=== PATIENT | female | born 1975 | race Two or more races ===

== ENCOUNTER 2016-11-19 17:10 | Observation (INO) | payer SELFPAY ==
[~2016-11-19] VITALS: Ht 175.3 cm; Wt 95.3 kg
[2016-11-19] VITALS (8 sets, daily range): BP systolic 105–122; BP diastolic 61–75
[2016-11-19] MEDS ORDERED: ONDANSETRON PF 4 MG/2 ML VIAL. IV PRN ×3 (18:30→19:45)
[2016-11-19] MEDS ORDERED: HYDROMORPHONE 2 MG/ML VIAL. IV ONE (18:30)
[2016-11-19] MEDS ORDERED: PROPOFOL 20 ML IV ONE (18:42)
[2016-11-19] MEDS ORDERED: FENTANYL PF 100 MCG/2 ML VIAL. ONE (18:42)
[2016-11-19] MEDS ORDERED: ROCURONIUM 50 MG/5 ML VIAL. ONE (18:42)
[2016-11-19] MEDS ORDERED: LIDOCAINE 2% 100 MG/5 ML DISP.SYRIN. ONE (18:42)
[2016-11-19] MEDS ORDERED: SUCCINYLCHOLINE 200 MG/10 ML VIAL. ONE (18:43)
[2016-11-19] MEDS: IV NORMAL SALINE 1000ML BAG 1,000 ML IV SCH ×2 (18:52→21:32)
[2016-11-19] MEDS ORDERED: BUPIVAC MPF-EPI 0.5%-1:200000 30 ML VIAL. ONE (19:26)
[2016-11-19] MEDS ORDERED: SURGICEL HEMOSTAT 4X8 EACH. ONE (19:26)
[2016-11-19] MEDS ORDERED: IV RINGERS,LACTATED 1000ML 1,000 ML IV SCH (19:27)
[2016-11-19] MEDS ORDERED: FENTANYL PF 100 MCG/2 ML VIAL. IV PRN (19:30)
[2016-11-19] MEDS ORDERED: LIDOCAINE 1% 1 ML SYRINGE. ID PRN (19:30)
[2016-11-19] MEDS ORDERED: MORPHINE SULFATE 2 MG/ML DISP.SYRIN. IV PRN (19:30)
[2016-11-19] MEDS ORDERED: HYDROMORPHONE 2 MG/ML VIAL. IV PRN ×2 (19:30→19:45)
[2016-11-19] MEDS ORDERED: PROCHLORPERAZINE 10 MG/2 ML VIAL. IV PRN (19:30)
[2016-11-19] MEDS ORDERED: CEFOXITIN 2GM IVPB FOR OMNI 100 ML IV STA (19:35)
--- NOTE | 2016-11-19 19:42 | PDOC ---
Provider Note Provider Note #[id number]--z and p dictated acute appendicitis sepsis, POA. sec to appendicitis HUMA MEDINA MD Nov 19, 2016 19:42
[2016-11-19] MEDS ORDERED: 0.9 % SODIUM CHLORIDE 10 ML DISP.SYRIN. IV PRN (19:45)
[2016-11-19] MEDS ORDERED: OXYC-323 PO (19:45)
[2016-11-19] MEDS ORDERED: METOCLOPRAMIDE HCL 10 MG/2 ML VIAL. IV PRN (19:45)
[2016-11-19] MEDS ORDERED: DEXAMETHASONE SOD PHOS 20 MG/5 ML VIAL. ONE (19:51)
[2016-11-19] MEDS ORDERED: DESFLURANE 31 TO 60 MINUTES IH ONE (19:51)
[2016-11-19] MEDS ORDERED: ONDANSETRON PF 4 MG/2 ML VIAL. ONE (20:03)
[2016-11-19] MEDS ORDERED: GLYCOPYRROLATE 1 MG/5 ML VIAL. ONE (20:03)
[2016-11-19] MEDS ORDERED: NEOSTIGMINE METHYLSULFATE 5 MG/5 ML SYRINGE. ONE (20:04)
[2016-11-19] MEDS ORDERED: KETOROLAC 30 MG/ML SYRINGE FOR OR. INJ ONE (20:28)
--- NOTE | 2016-11-19 20:40 | PDOC ---
BRIEF OPERATIVE NOTE Pre-Op Diagnosis appendicitis lap appy geta ebl 20 ivf 1000 karla well to rr stable. #[id number] HUMA MEDINA MD Nov 19, 2016 20:40
[2016-11-19] MEDS: SENNOSIDES/DOCUSATE 8.6/50MG TABLET. PO SCH (21:00)
[2016-11-19] MEDS: FENTANYL PF 100 MCG/2 ML VIAL. IV PRN ×2 (21:03→21:15)
[2016-11-19] MEDS: OXYCODONE/APAP 5/325 TABLET. PO PRN (21:53)
--- NOTE | 2016-11-20 00:25 | HP ---
ADMIT DATE: 11/19/2016 CHIEF COMPLAINT: Abdominal pain. HISTORY OF PRESENT ILLNESS: The patient is a 41-year-old male who began having abdominal pain on . Originally, it was crampy and located periumbilically and then it localized on Sunday to his right lower quadrant and became sharp and constant in nature. The pain is increasingly severe. It is constant and it is sharp. It is exacerbated by movement. It is associated with nausea and vomiting on Sunday. PAST MEDICAL HISTORY: Athlete's foot. PAST SURGICAL HISTORY: Pins in his right wrist/hand. MEDICATIONS AT HOME: None. ALLERGIES: None. SOCIAL HISTORY: He smokes about a half pack to 1 pack a day. He is employed. He used to drink heavily, now he does not. He is , with children. FAMILY HISTORY: Noncontributory to this illness. REVIEW OF SYSTEMS: CONSTITUTIONAL: No fevers or chills. EYES: No abrupt loss of vision or double vision. EARS, NOSE, MOUTH AND THROAT: No loss of hearing or ringing in his ears. CARDIOVASCULAR: No chest pain or heart palpitations. RESPIRATORY: No cough, shortness of breath. GASTROINTESTINAL: See HPI. GENITOURINARY: No dysuria or hematuria. HEMATOLOGIC: No easy bleeding or bruising. MUSCULOSKELETAL: No new myalgias or arthralgias. DERMATOLOGIC: No new rashes or lesions. He has had chronic problems with bilateral athlete's foot. PSYCHIATRIC: No depression or anxiety. NEUROLOGIC: No headaches or seizures. PHYSICAL EXAMINATION: GENERAL: He is a well-developed, well-nourished male in no acute distress. EYES: Pupils are round and reactive. Sclerae are nonicteric. HENT: Head is atraumatic. Mucous membranes are moist. Face is symmetric. NECK: Supple without cervical lymphadenopathy. No supraclavicular lymphadenopathy. Neck is nontender. CARDIOVASCULAR: Palpation of the left radial pulse reveals regular rate, no pedal edema. He has 2+ left radial pulse. RESPIRATORY: His respirations are nonlabored. His chest wall is nontender to palpation. He is on room air. ABDOMEN: Soft, nondistended. He is focally tender in the right lower quadrant with no rebound or guarding. He may have a small umbilical hernia, but he is tender enough that I am unable to palpate his umbilicus deep enough to confirm this. VITAL SIGNS: His temperature is 98.3 with a pulse of 100, respiratory rate 18. EXTREMITIES: No clubbing, cyanosis or edema. NEUROLOGIC: No resting tremor. He can move all 4 extremities without difficulty. PSYCHIATRIC: He is cooperative with appropriate mood and affect. LABORATORY DATA: Reviewed. White count is 19.9. Chemistry is unremarkable. UA is unremarkable. Toxicology is positive for cannabinoids. Imaging is consistent with acute appendicitis noted on CT scan. ASSESSMENT: 1. Acute appendicitis. 2. Sepsis secondary to acute appendicitis with a heart rate of 100 and a white count of 19.9 thousand. 3. Tobacco use. PLAN: The patient is being taken to the operating room for laparoscopic appendectomy, possible open. Risk of surgery including bleeding, ongoing infection or postoperative abscess, injury to intra-abdominal structures, need to convert to open and remote risk of heart attack, stroke, DVT, PE, pneumonia and were all discussed with the patient. Questions were answered. He desires to proceed with the procedure. The OR crew has been notified and they are here. HUMA MEDINA MD DR: JAZMINE/lorene JOB#: [id number] / [id number] ZIGGY
[2016-11-20] MEDS: OXYCODONE/APAP 5/325 TABLET. PO PRN (01:21)
[2016-11-20 03:00] VITALS: BP 109/61
[2016-11-20] MEDS: KETOROLAC TROMETHAMINE 30 MG/ML SYRINGE. IV PRN ×2 (03:17→09:35)
[2016-11-20] MEDS: IV NORMAL SALINE 1000ML BAG 1,000 ML IV SCH ×2 (05:45→07:24)
[2016-11-20 07:20] VITALS: BP 130/74
[2016-11-20] MEDS: SENNOSIDES/DOCUSATE 8.6/50MG TABLET. PO SCH (07:47)
[2016-11-20] MEDS ORDERED: INFLUENZA VAX SCREEN BY RX. MC PRN (09:15)
[2016-11-20 11:00] VITALS: BP 132/76
[2016-11-20] MEDS ORDERED: FLU VACC QUAD 2016-17 (36MOS+)/PF 0.5 ML SYRINGE. VAX IM ONE (11:00)
--- NOTE | 2016-11-20 12:27 | OP ---
DATE OF SURGERY: 11/19/2016 PREOPERATIVE DIAGNOSIS: Acute appendicitis. POSTOPERATIVE DIAGNOSIS: Acute appendicitis. PROCEDURE: Laparoscopic appendectomy. SURGEON: Huma Medina M.D. ANESTHESIA: General. ESTIMATED BLOOD LOSS: 20 mL. IV FLUIDS: 1000 mL. INDICATIONS: The patient is a 41-year-old male who presents with acute appendicitis. FINDINGS: The patient had nonperforated nongangrenous appendicitis. DESCRIPTION OF PROCEDURE: After informed consent was obtained, the patient was taken to the operating room and placed in supine position. After adequate induction of general anesthesia, he was prepped and draped in usual sterile fashion. An infraumbilical skin incision was made with a scalpel, subcutaneous tissues with a hemostat. [facility] was used to grab the fascia and lift it anteriorly. Veress used to gain access to the peritoneal cavity. Low opening pressures confirmed intraperitoneal placement of Veress. Pneumoperitoneum to 15 mmHg was established followed by placement of 5 mm port. A 5 mm 30 degree lens was inserted, which revealed good port placement. No evidence of entry trauma. He was placed head down and rotated towards his left. Two additional ports were placed under direct vision and sites were injected with local anesthetic. Skin incisions were made and then under direct vision a 5 mm suprapubic port and a 12 mm left lower quadrant port were placed. The appendix was visible in the right lower quadrant, it was mobilized bluntly. The AIDAN blue load stapler was used to divide the base of the appendix after a window had been made with a [place] dissector at the base of the appendix. A AIDAN white load was then used to divide the mesoappendix. The appendix was placed in laparoscopic bag and brought out through the left lower quadrant incision. The right lower quadrant was irrigated. Irrigant returned clear. There was no bleeding from the staple lines. The staple lines appeared hemostatic and healthy. Pelvis was irrigated. There was no fluid in the pelvis. At this point, the fascial closure device was used to close the fascia at the left lower quadrant incision with 0 Vicryl suture x 2. Ports removed under direct vision. They were hemostatic. Pneumoperitoneum was desufflated. Prior to doing so one final look at the right lower quadrant revealed it to be hemostatic. Ports were removed under direct vision. They were hemostatic. Pneumoperitoneum was desufflated. Skin incisions were then closed with 4-0 Monocryl in subcuticular fashion. Additional local was injected. Sterile dressings were placed. He tolerated the procedure well. There were no apparent complications. He was then transferred in stable condition to the recovery room. HUMA MEDINA MD DR: JAZMINE/lorene JOB#: [id number] / [id number] ZIGGY
--- NOTE | 2016-11-20 13:20 | PDOC ---
Provider Note Provider Note feels well wants to go home afeb vss abd soft nd approp tender bandages dry a/p dc home HUMA MEDINA MD Nov 20, 2016 13:20
--- NOTE | 2016-11-21 16:31 | PATHOLOGY ---
PATHOLOGY REPORT * * * * * * * * FINAL DIAGNOSIS: Appendix, laparoscopic appendectomy: - Acute necrotizing and hemorrhagic appendicitis. COMMENT: There is no evidence of rupture. (JPM:all; d/t: 11/21/2016) REPORT ELECTRONICALLY SIGNED BY: Armando Stuart M.D. DATE/TIME: 11/21/2016 16:30 * * * * * * * * GROSS PATHOLOGY: Received in formalin labeled "Ntaasha Lamas, appendix," is an appendix measuring 7.8 cm in length and up to 1.5 cm in diameter with a moderate amount of attached mesoappendix. The serosal surface is dusky patrick-lechuag brown in appearance with a slight amount of overlying exudate near the proximal margin. Sectioning reveals a patent to dilated lumen filled with fibrinopurulent exudate admixed with blood coagulum. The specimen is submitted representatively as follows: A1 proximal margin and bisected tip A2 additional cross sections of appendix. (CAA; 11/20/2016) INITIAL CPT CODE(S): A; 93372 Professional services performed [place] [address] Technical services performed by [facility] at [address] [place] [address] [address], [place] [address]. SPECIMEN(S) RECEIVED: A.Appendix CLINICAL HISTORY: Acute appendicitis PATIENT: NATASHA LAMAS /AGE: 5 1975 (Age: 41) PATIENT #: [id number] ALT CASE #: SPECIMEN COLLECTION DATE: 11/19/2016 SPECIMEN RECEIVED DATE: 11/20/2016 [facility] [place] [address] - PHONE: [phone] * * * END OF REPORT * * *
== END 2016-11-20 14:00 | disposition home or self-care (01) ==
LOC: INTOOBSV 18:09 → 5 SOUTH 18:09
PROVIDERS: ADMIT Surgery; ATTEND Surgery
DX: K35.80 Unspecified acute appendicitis (principal); F17.210 Nicotine dependence, cigarettes, uncomplicated; A41.9 Sepsis, unspecified organism
CPT/HCPCS: 44970; 88304; 96374; 96375; 96376; 99406; C1782; G0378; G0379; J0330; J0694; J1100; J1170; J1885; J2405; J2704; J2710; J3010; J3490; J7030

== ENCOUNTER 2016-11-27 17:19 | Inpatient (IN) | payer SELFPAY ==
[~2016-11-27] VITALS: Ht 175.3 cm; Wt 92.8 kg
[~2016-11-27 17:19] MED LIST: OXYC-323 PO
[2016-11-27] MEDS ORDERED: IV NORMAL SALINE 1000ML BAG 1,000 ML IV SCH (18:23)
[2016-11-27 18:39] LABS: BASO # 0.1 x10^3/uL (0.0-0.2); BASO % 0 % (0-3); EOS % 0 % (0-3); HEMATOCRIT 42.9 % (39.0-53.0); HEMOGLOBIN 14.1 g/dL (13.0-17.5); LYMPH # 1.3 x10^3/uL (1.0-4.8); LYMPH % 4 % (24-48); MEAN CORPUSCULAR HEMOGLOBIN 30 pg (25-35); MEAN CORPUSCULAR HGB CONC 33 g/dL (31-37); MEAN CORPUSCULAR VOLUME 93 fL (79-100); MONO % 6 % (0-9); NEUT % 90 % (31-73); PLATELET COUNT 341 x10^3/uL (140-400); RED BLOOD COUNT 4.63 x10^6/uL (4.30-5.70); RED CELL DISTRIBUTION WIDTH 14.1 % (11.5-14.5); WHITE BLOOD COUNT 32.7 x10^3/uL (4.0-11.0)
[2016-11-27] MEDS: FENTANYL PF 100 MCG/2 ML VIAL. IV PRN ×5 (18:40→23:50)
[2016-11-27] MEDS ORDERED: CONTRAST GIVEN MC PRN (18:45)
[2016-11-27] MEDS ORDERED: IOHEXOL 300 MG/ML 75 ML VIAL IV ONE (18:45)
[2016-11-27 18:58] LABS: CALCIUM 9.1 mg/dL (8.5-10.1); CREATININE 0.9 mg/dL (0.7-1.3)
[2016-11-27 19:05] LABS: ALBUMIN 3.2 g/dL (3.4-5.0); ALBUMIN/GLOBULIN RATIO 0.7 (1.0-1.7); TOTAL BILIRUBIN 0.6 mg/dL (0.2-1.0); TOTAL PROTEIN 7.7 g/dL (6.4-8.2)
--- NOTE | 2016-11-27 19:46 | RAD ---
PQRS STATEMENT One or more of the following individualized dose reduction techniques were utilized for this study: 1.Automated exposure control. 2.Adjustment of the mA and/orkVaccording to patient size. 3.Use of iterative reconstruction technique. Indication:EXTREME LLQ PAIN S/P APPENDECTOMY October
OMNI 300 75ML Reason: status post appendectomy November 19, left abdominal cellulitis / Spl. Instructions: / History: Technique: multiple contiguous axial images were obtained through the abdomen and pelvis after intravenous administration of iodinated contrast. Coronal and sagittal reformations were created. Findings: There is a loculated fluid collection predominantly located within the left ventral abdominal wall musculature. This measures 5.5 by 4.4 by 3.2 centimeters and contains gas within it. There is also some subcutaneous emphysema superficial to the loculated fluid collection. There is some thickening and enhancement of the parietal peritoneum and but no peritoneal free fluid or loculated fluid collection. Lung bases are clear apart from atelectasis which is minimal. Heart size is normal. The liver and spleen are normal in size with no focal lesion identified. The gallbladder is nondistended. The pancreas and adrenal glands are unremarkable. The spleen is normal in size. Abdominal aorta is normal in caliber. There is mild pelvic inguinal adenopathy. No retroperitoneal adenopathy is appreciated. The appendix is not identified. No pericecal inflammatory mass to suggest acute appendicitis. Bowel loops are normal in caliber. Urinary bladder is unremarkable. No destructive osseous lesion. There is grade 2 spondylolisthesis of L5 on S1 with bilateral L5 pars defects. This causes bilateral foraminal stenosis. Impression: There is a presumed abscess within the left ventral abdominal musculature as detailed above. No intra-abdominal fluid collection or free fluid is appreciated. Electronically signed by: Toribio oYung (Nov 27, 2016 19:45:20)
[2016-11-27] MEDS ORDERED: PIP/TAZO PER PHARMACY MC PRN (20:00)
[2016-11-27] MEDS ORDERED: IV NORMAL SALINE 1000ML BAG 1,000 ML IV ONE (20:00)
--- NOTE | 2016-11-27 20:02 | PHYS DOC ---
Past Medical History Past Medical History: No Pertinent History Past Surgical History: Appendectomy Additional Past Surgical Histo: right hand surgery Additional Information: 1 ppd Alcohol Use: None Drug Use: None Adult General Chief Complaint Chief Complaint: POST-OP PROBLEM HPI HPI Patient is a 41 year old male who presents with complaint of abdominal pain. Patient states that his symptoms started over the past 3 days. Patient has noticed increasing pain and swelling near his incision sites. The patient was admitted to the hospital on November 19, 2016 with a diagnosis of acute appendicitis. The patient went to the OR with Dr. Canales for laparoscopic appendectomy. The patient states that he was discharged on November 20 and states that he felt well at time of discharge. Patient states however over the past few days he has noticed worsening pain and swelling with redness forming along the left lower portion of his abdomen. Patient states that the swelling is very warm to touch and is also very tender. Patient rates his pain currently is 10 out of 10. Patient has been having nausea and lightheadedness associated with his symptoms. Due to worsening symptoms the patient came to the emergency department for evaluation. [] Review of Systems Review of Systems Constitutional: Fever, chills [] Eyes: Denies change in visual acuity, redness, or eye pain [] HENT: Denies nasal congestion or sore throat [] Respiratory: Denies cough or shortness of breath [] Cardiovascular: No additional information not addressed in HPI [] GI: Abdominal pain [] : Denies dysuria or hematuria [] Musculoskeletal: Denies joint pain [] Integument: Redness and swelling to abdominal wall[] Neurologic: Denies headache, focal weakness or sensory changes [] Endocrine: Denies polyuria or polydipsia [] Current Medications Current Medications Current Medications Medications (Trade) Dose Ordered Sig/Eric Start Time Stop Time Status Last Admin Dose Admin Fentanyl Citrate 50 mcg 50 mcg PRN Q15MIN PRN 11/27/16 18:30 11/28/16 18:29 11/27/16 21:04 50 MCG Info (Do NOT chart on this entry -- for MONITORING) 1 each PRN DAILY PRN 11/27/16 18:45 11/29/16 18:44 Iohexol (Omnipaque 300 Mg/ml) 75 ml 1X ONCE 11/27/16 18:45 11/27/16 18:46 DC 11/27/16 19:12 75 ML Sodium Chloride (Iv Sodium Chloride 0.9% 1000ml Bag) 1,000 ml @ 1,000 mls/hr Q1H 11/27/16 18:23 11/27/16 19:22 DC 11/27/16 18:41 1,000 MLS/HR Allergies Allergies Allergies Coded Allergies Type Severity Reaction Last Updated Verified No Known Drug Allergies 11/19/16 No Physical Exam Physical Exam Constitutional: Alert, febrile, appears ill. [] HENT: Normocephalic, atraumatic, bilateral external ears normal, oropharynx moist, no oral exudates, nose normal. [] Eyes: PERRLA, EOMI, conjunctiva normal, no discharge. [] Neck: Normal range of motion, no tenderness, supple, no stridor. [] Cardiovascular: Tachycardia, regular rhythm, no murmur [] Lungs & Thorax: Bilateral breath sounds clear to auscultation [] Abdomen: Bowel sounds normal, soft, erythema, induration, and significant tenderness to palpation at periumbilical is and left lower quadrant. [] Skin: Warm, dry, erythema present along left lower quadrant and periumbilical, no rash. [] Back: No tenderness, no CVA tenderness. [] Extremities: No tenderness, no cyanosis, no clubbing, ROM intact, no edema. [] Neurologic: Alert and oriented X 3, normal motor function, normal sensory function, no focal deficits noted. [] Current Patient Data Vital Signs Vital Signs Date Time Temp Pulse Resp B/P Pulse Ox O2 Delivery O2 Flow Rate FiO2 11/27/16 19:36 103.1 103.1 11/27/16 19:30 104 20 131/74 95 Room Air Lab Values Laboratory Tests Test 11/27/16 17:50 11/27/16 19:30 White Blood Count 32.7x10^3/uL (4.0-11.0) H Red Blood Count 4.63x10^6/uL (4.30-5.70) Hemoglobin 14.1g/dL (13.0-17.5) Hematocrit 42.9% (39.0-53.0) Mean Corpuscular Volume 93fL (79-100) Mean Corpuscular Hemoglobin 30pg (25-35) Mean Corpuscular Hemoglobin Concent 33g/dL (31-37) Red Cell Distribution Width 14.1% (11.5-14.5) Platelet Count 341x10^3/uL (140-400) Neutrophils (%) (Auto) 90% (31-73) H Lymphocytes (%) (Auto) 4% (24-48) L Monocytes (%) (Auto) 6% (0-9) Eosinophils (%) (Auto) 0% (0-3) Basophils (%) (Auto) 0% (0-3) Neutrophils # (Auto) 29.4x10^3uL (1.8-7.7) H Lymphocytes # (Auto) 1.3x10^3/uL (1.0-4.8) Monocytes # (Auto) 1.8x10^3/uL (0.0-1.1) H Eosinophils # (Auto) 0.0x10^3/uL (0.0-0.7) Basophils # (Auto) 0.1x10^3/uL (0.0-0.2) Segmented Neutrophils % 86% (35-66) H Band Neutrophils % 3% (0-9) Lymphocytes % 6% (24-48) L Monocytes % 5% (0-10) Toxic Granulation Slight Platelet Estimate Adequate (ADEQUATE) Sodium Level 134mmol/L (136-145) L Potassium Level 4.0mmol/L (3.5-5.1) Chloride Level 96mmol/L (98-107) L Carbon Dioxide Level 28mmol/L (21-32) Anion Gap 10 (6-14) Blood Urea Nitrogen 13mg/dL (8-26) Creatinine 0.9mg/dL (0.7-1.3) Estimated GFR (Cockcroft-Gault) 93.0 BUN/Creatinine Ratio 14 (6-20) Glucose Level 102mg/dL (70-99) H Lactic Acid Level 1.3mmol/L (0.4-2.0) Calcium Level 9.1mg/dL (8.5-10.1) Total Bilirubin 0.6mg/dL (0.2-1.0) Aspartate Amino Transferase (AST) 15U/L (15-37) Alanine Aminotransferase (ALT) 25U/L (16-63) Alkaline Phosphatase 82U/L (46-116) Total Protein 7.7g/dL (6.4-8.2) Albumin 3.2g/dL (3.4-5.0) L Albumin/Globulin Ratio 0.7 (1.0-1.7) L Lipase 77U/L (73-393) Urine Color Yellow Urine Clarity Clear Urine pH 6.5 Urine Specific [place] 1.020 Urine Protein Negativemg/dL (NEG-TRACE) Urine Glucose (UA) Negativemg/dL (NEG) Urine Ketones (Stick) 15mg/dL (NEG) Urine Blood Negative (NEG) Urine Nitrite Negative (NEG) Urine Bilirubin Negative (NEG) Urine Urobilinogen Dipstick 1.0mg/dL (0.2 mg/dL) Urine Leukocyte Esterase Negative (NEG) Urine RBC 0/HPF (0-2) Urine WBC Occ/HPF (0-4) Urine Squamous Epithelial Cells Occ/LPF Urine Amorphous Sediment Present/HPF Urine Bacteria 0/HPF (0-FEW) Laboratory Tests 11/27/16 17:50 Laboratory Tests 11/27/16 17:50 EKG EKG Interpreted by me: Heart rate 103, sinus tachycardia, normal intervals, normal axis, no acute ST/T-wave abnormalities present Radiology/Procedures Radiology/Procedures [facility] [address] [place] [address] IMAGING REPORT Signed PATIENT: NATASHA AVINA ACCOUNT: [id number] : 1975 LOCATION: ER AGE: 41 SEX: M EXAM STATUS: PRE ER ORD. PHYSICIAN: SHELLY LUQUE MD REASON: status post appendectomy November 19, left abdominal cellulitis PROCEDURE: ABD PELV W/ ORAL & IV CONTRAST PQRS STATEMENT One or more of the following individualized dose reduction techniques were utilized for this study: 1.Automated exposure control. 2.Adjustment of the mA and/orkVaccording to patient size. 3.Use of iterative reconstruction technique. Indication:EXTREME LLQ PAIN S/P APPENDECTOMY October
OMNI 300 75ML Reason: status post appendectomy November 19, left abdominal cellulitis / Spl. Instructions: / History: Technique: multiple contiguous axial images were obtained through the abdomen and pelvis after intravenous administration of iodinated contrast. Coronal and sagittal reformations were created. Findings: There is a loculated fluid collection predominantly located within the left ventral abdominal wall musculature. This measures 5.5 by 4.4 by 3.2 centimeters and contains gas within it. There is also some subcutaneous emphysema superficial to the loculated fluid collection. There is some thickening and enhancement of the parietal peritoneum and but no peritoneal free fluid or loculated fluid collection. Lung bases are clear apart from atelectasis which is minimal. Heart size is normal. The liver and spleen are normal in size with no focal lesion identified. The gallbladder is nondistended. The pancreas and adrenal glands are unremarkable. The spleen is normal in size. Abdominal aorta is normal in caliber. There is mild pelvic inguinal adenopathy. No retroperitoneal adenopathy is appreciated. The appendix is not identified. No pericecal inflammatory mass to suggest acute appendicitis. Bowel loops are normal in caliber. Urinary bladder is unremarkable. No destructive osseous lesion. There is grade 2 spondylolisthesis of L5 on S1 with bilateral L5 pars defects. This causes bilateral foraminal stenosis. Impression: There is a presumed abscess within the left ventral abdominal musculature as detailed above. No intra-abdominal fluid collection or free fluid is appreciated. Electronically signed by: Toribio Young (Nov 27, 2016 19:45:20) DICTATED and SIGNED BY: TORIBIO YOUNG MD DATE: 11/27/161944 CC: SHELLY LUQUE MD; NO PCP ~ [] Course & Med Decision Making Course & Med Decision Making Pertinent Labs and Imaging studies reviewed. (See chart for details) Patient's CT shows a large left lower abdominal wall abscess. The patient started on IV Zosyn. I spoke with Dr. Mas who is on-call for Dr. Canales. He agreed with initial measures of treatment and stated that Dr. Canales would likely take the patient to the OR in the morning for incision and drainage of the abscess. Patient was admitted to Dr. Rivera. Felix Disclaimer Felix Disclaimer This electronic medical record was generated, in whole or in part, using a voice recognition dictation system. Departure Departure Impression: Primary Impression: Sepsis Additional Impression: Abdominal wall abscess Disposition: ADMITTED INPATIENT Admitting Physician: Kory Rivera Condition: GUARDED Referrals: NO PCP (PCP) Problem Qualifiers Primary Impression: Sepsis Sepsis type: sepsis due to unspecified organism Qualified Code: A41.9 - Sepsis, unspecified organism SHELLY LUQUE MD Nov 27, 2016 20:02
[2016-11-27 20:03] LABS: BILIRUBIN,URINE NEGATIVE (NEG); GLUCOSE,URINE NEGATIVE (NEG); NITRITE,URINE NEGATIVE (NEG); PH,URINE 6.5; PROTEIN,URINE NEGATIVE (NEG-TRACE)
[2016-11-27 20:14] LABS: BACTERIA,URINE 0 /HPF (0-FEW); RBC,URINE 0 /HPF (0-2); SQUAMOUS EPITHELIAL CELL,UR OCC /LPF; WBC,URINE OCC /HPF (0-4)
[2016-11-27] MEDS ORDERED: ONDANSETRON PF 4 MG/2 ML VIAL. IV PRN (20:15)
[2016-11-27] MEDS ORDERED: ACETAMINOPHEN 325 MG TABLET. PO PRN (20:15)
[2016-11-27 20:20] LABS: PLT ESTIMATE ADEQUATE (ADEQUATE); TOXIC GRANULATION SLIGHT
[2016-11-27] MEDS: IV NORMAL SALINE 1000ML BAG 1,000 ML IV SCH ×2 (20:22→23:49)
[2016-11-27] MEDS ORDERED: PIPERACILLIN/TAZOBACTAM 4.5 GM in IV NORMAL SALINE 100ML 100 ML IV ONE (20:30)
[2016-11-27 23:00] VITALS: BP 128/64
[2016-11-28] VITALS (13 sets, daily range): BP systolic 101–128; BP diastolic 57–76
--- NOTE | 2016-11-28 00:16 | HP ---
ADMIT DATE: 11/27/2016 CHIEF COMPLAINT: Abdominal pain and probable abscess. HISTORY OF PRESENT ILLNESS: The patient is a pleasant 41-year-old male who has abdominal pain and appears he has abscess in the left lower quadrant. He had a recent appendectomy with Dr. Canales. I have discussed the case with the ER physician. We are going admit the patient, give him IV antibiotics and consult General Surgery. PAST MEDICAL HISTORY: Recent appendectomy and history of right hand surgery. ALLERGIES: None. FAMILY HISTORY: Hypertension. SOCIAL HISTORY: Does not drink, smoke or take drugs. MEDICATIONS: Reviewed, please refer to the MRAD. REVIEW OF SYSTEMS: GENERAL: No history of weight change, weakness or fevers. SKIN: No bruising, hair changes or rashes. EYES: No blurred, double or loss of vision. NOSE AND THROAT: No history of nosebleeds, hoarseness or sore throat. HEART: No history of palpitations, chest pain or shortness of breath on exertion. LUNGS: Denies cough, hemoptysis, wheezing or shortness of breath. GASTROINTESTINAL: He complains of severe 10/10 abdominal pain. GENITOURINARY: No history of frequency, urgency, hesitancy or nocturia. NEUROLOGIC: Denies history of numbness, tingling, tremor or weakness. PSYCHIATRIC: No history of panic, anxiety or depression. ENDOCRINE: No history of heat or cold intolerance, polyuria or polydipsia. EXTREMITIES: Denies muscle weakness, joint pain, pain on walking or stiffness. PHYSICAL EXAMINATION: VITAL SIGNS: Temperature 101.2, pulse 100, respirations 20, blood pressure 118/60. GENERAL: He is alert, cooperative, complaining of severe pain. HEART: Normal S1, S2. LUNGS: Clear. ABDOMEN: Soft. Decreased bowel sounds, extremely tender in the left lower quadrant. EXTREMITIES: No edema. SKIN: No rashes. PSYCHIATRIC: He is depressed. VASCULAR: Good capillary refill. ENDOCRINE: No thyromegaly. LYMPHATICS: No cervical nodes. HEMATOPOIETIC: No bruising. LABORATORY DATA: White count 33, hemoglobin 14, platelets 341. Electrolytes: Sodium 134, potassium 4, chloride 96, bicarbonate 28, BUN 13, creatinine 0.9, glucose 102. Urinalysis is negative. ASSESSMENT AND PLAN: Left abdominal wall abscess with leukocytosis. We will start IV antibiotics. We have consulted General Surgery. I have notified them of the situation. Suspect he will go to the surgery in the morning. IV fluids, p.r.n. narcotics. LAURA BRANNON DO DR: MEDARDO/lorene JOB#: [id number] / [id number]
--- NOTE | 2016-11-28 00:25 | ACF ---
Admission Forms Criteria ABDOMINAL PAIN Clinical Indications for Admission to Inpatient Care (Place 'X' for any and all applicable criteria): Admission is indicated for ANY ONE of the following(1)(2)(3)(4)(5): [X]I. Inpatient admission required rather than observation care (Also use Abdominal Pain: Observation Care, as appropriate) because of ANY ONE of the following: [ ]a) Severe pain requiring acute inpatient management [X]b) Identification of etiology/finding that requires inpatient care (eg, aortic dissection, free air) [ ]c) Absent bowel sounds with complete ileus(6) [ ]d) Suspected toxic megacolon [ ]e) Severe electrolyte abnormalities requiring inpatient care [ ]f) High fever or infection requiring inpatient admission as indicated by ANY ONE of following(7)(8): [ ] i) Appropriate outpatient or observational care antimicrobial treatment unavailable, not effective, or not feasible [ ] ii) Documented bacteremia [ ] iii) Temperature > 104.9 degrees F (oral) [ ] iv) T >103.1 F (oral) or < 96.8 F(rectal) that does not respond to all emergency treatment measures [ ]g) Signs of intestinal obstruction [B] [ ]h) Hemodynamic instability [ ]i) IV fluid to replace significant ongoing losses (greater than 3 L/m2 per day) (12)(13) [ ]j) Percutaneous or open drainage (eg, abscess, biliary tract ) procedures [ ]k) Parenteral nutrition regimen that must be implemented on inpatient basis [ ]l) Other condition,treatment or monitoring requiring inpatient admission. [ ]II. Peritoneal signs present [ ]III. Surgery needed that cannot be performed on an ambulatory basis. [ ]IV. Evaluation requires patient to not eat or drink for extended period ( eg, more than 24 hours). [ ]V. Contraindications and/or Inappropriate clinical situations for Observational Care in patients with abdominal pain, when ANY ONE of the following is required: [ ]a) Thorough evaluation is required to prevent catastrophic events due to delays in diagnosing (e.g.Mesenteric ischemia) 1,3 [ ]b) Patient with severe pathology or with chronic symptoms unlikely to improve in the ED stay (3) [ ]. General contraindications and/or Inappropriate clinical situations for Observational Care in patients with abdominal pain, when ANY ONE of the following is required: [ ]a) Prediction of prolongation of LOS based on ANY ONE of the following may be considered as a contraindication for observational care 2, 3, 4, 5, 6, 7, 8, 9, 10, 11 [ ]i) Age > 65 yrs. [ ]ii) Patient arriving by ambulance [ ]iii) Patient with high acuity [ ]iv) Patient requiring vital sign monitoring [ ]v) Patient on IV medication [ ]b) Systolic blood pressures 180mmHg 3,12 [ ]c) Patient with altered mental status including delirium and other alteration of consciousness, (3) [ ]d) Patient whose discharge disposition will be to a detention home or rehabilitation home should not be managed in Emergency Department Observation Unit. CMS rule requires 3 days hospital stay before such placement.3,13 [ ]e) Patient with failure to thrive due to broad array of etiologies 3,16,17 [ ]f) Inability to ambulate 3,14 Extended stay beyond goal length of stay may be needed for(2)(3): [ ]a) Persistent abdominal pain with suspected intra-abdominal process [ ]b) Diagnosed condition requiring continued stay (e.g., pancreatitis, complicated diverticulitis) [ ]c) Surgery (e.g., colectomy) The original [facility] content created by [employer] has been revised. The portions of the content which have been revised are identified through the use of italic text or in bold, and [facility] has neither reviewed nor approved the modified material.All other unmodified content is copyright [facility]. Please see references footnoted in the original [facility] edition 2016 Admission Criteria Met?: Yes S[place] Nov 28, 2016 00:25
[2016-11-28] MEDS: FENTANYL PF 100 MCG/2 ML VIAL. IV PRN ×6 (01:59→17:25)
[2016-11-28] MEDS: IV NORMAL SALINE 1000ML BAG 1,000 ML IV SCH ×2 (05:30→17:30)
[2016-11-28] MEDS ORDERED: PIPERACILLIN/TAZOBACTAM 3.375 GM in IV NORMAL SALINE 50ML 50 ML IV SCH (06:00)
[2016-11-28] MEDS ORDERED: IV RINGERS,LACTATED 1000ML 1,000 ML IV SCH (07:08)
[2016-11-28] MEDS ORDERED: ONDANSETRON PF 4 MG/2 ML VIAL. IV PRN (07:15)
[2016-11-28] MEDS ORDERED: MORPHINE SULFATE 2 MG/ML DISP.SYRIN. IV PRN (07:15)
[2016-11-28] MEDS ORDERED: HYDROMORPHONE 2 MG/ML VIAL. IV PRN (07:15)
[2016-11-28] MEDS ORDERED: LIDOCAINE 1% 1 ML SYRINGE. ID PRN (07:15)
[2016-11-28] MEDS ORDERED: FENTANYL PF 100 MCG/2 ML VIAL. IV PRN ×2 (07:15)
[2016-11-28] MEDS ORDERED: PROCHLORPERAZINE 10 MG/2 ML VIAL. IV PRN (07:15)
[2016-11-28 08:43] LABS: BASO # 0.1 x10^3/uL (0.0-0.2); BASO % 0 % (0-3); EOS % 0 % (0-3); HEMATOCRIT 36.4 % (39.0-53.0); LYMPH % 7 % (24-48); MEAN CORPUSCULAR HEMOGLOBIN 30 pg (25-35); MEAN CORPUSCULAR HGB CONC 33 g/dL (31-37); MEAN CORPUSCULAR VOLUME 92 fL (79-100); MONO % 6 % (0-9); NEUT % 86 % (31-73); PLATELET COUNT 324 x10^3/uL (140-400); RED BLOOD COUNT 3.94 x10^6/uL (4.30-5.70); RED CELL DISTRIBUTION WIDTH 14.1 % (11.5-14.5); WHITE BLOOD COUNT 29.4 x10^3/uL (4.0-11.0)
--- NOTE | 2016-11-28 08:48 | PDOC ---
Infectious Disease Note Vital Sign Vital Signs Vital Signs Date Time Temp Pulse Resp B/P Pulse Ox O2 Delivery O2 Flow Rate FiO2 11/28/16 07:00 99.5 88 24 123/70 94 Room Air 99.5 Labs Lab Laboratory Tests Test 11/27/16 17:50 11/27/16 19:30 White Blood Count 32.7x10^3/uL (4.0-11.0) Red Blood Count 4.63x10^6/uL (4.30-5.70) Hemoglobin 14.1g/dL (13.0-17.5) Hematocrit 42.9% (39.0-53.0) Mean Corpuscular Volume 93fL (79-100) Mean Corpuscular Hemoglobin 30pg (25-35) Mean Corpuscular Hemoglobin Concent 33g/dL (31-37) Red Cell Distribution Width 14.1% (11.5-14.5) Platelet Count 341x10^3/uL (140-400) Neutrophils (%) (Auto) 90% (31-73) Lymphocytes (%) (Auto) 4% (24-48) Monocytes (%) (Auto) 6% (0-9) Eosinophils (%) (Auto) 0% (0-3) Basophils (%) (Auto) 0% (0-3) Neutrophils # (Auto) 29.4x10^3uL (1.8-7.7) Lymphocytes # (Auto) 1.3x10^3/uL (1.0-4.8) Monocytes # (Auto) 1.8x10^3/uL (0.0-1.1) Eosinophils # (Auto) 0.0x10^3/uL (0.0-0.7) Basophils # (Auto) 0.1x10^3/uL (0.0-0.2) Segmented Neutrophils % 86% (35-66) Band Neutrophils % 3% (0-9) Lymphocytes % 6% (24-48) Monocytes % 5% (0-10) Toxic Granulation Slight Platelet Estimate Adequate (ADEQUATE) Sodium Level 134mmol/L (136-145) Potassium Level 4.0mmol/L (3.5-5.1) Chloride Level 96mmol/L (98-107) Carbon Dioxide Level 28mmol/L (21-32) Anion Gap 10 (6-14) Blood Urea Nitrogen 13mg/dL (8-26) Creatinine 0.9mg/dL (0.7-1.3) Estimated GFR (Cockcroft-Gault) 93.0 BUN/Creatinine Ratio 14 (6-20) Glucose Level 102mg/dL (70-99) Lactic Acid Level 1.3mmol/L (0.4-2.0) Calcium Level 9.1mg/dL (8.5-10.1) Total Bilirubin 0.6mg/dL (0.2-1.0) Aspartate Amino Transf (AST/SGOT) 15U/L (15-37) Alanine Aminotransferase (ALT/SGPT) 25U/L (16-63) Alkaline Phosphatase 82U/L (46-116) Total Protein 7.7g/dL (6.4-8.2) Albumin 3.2g/dL (3.4-5.0) Albumin/Globulin Ratio 0.7 (1.0-1.7) Lipase 77U/L (73-393) Urine Color Yellow Urine Clarity Clear Urine pH 6.5 Urine Specific Martin 1.020 Urine Protein Negativemg/dL (NEG-TRACE) Urine Glucose (UA) Negativemg/dL (NEG) Urine Ketones (Stick) 15mg/dL (NEG) Urine Blood Negative (NEG) Urine Nitrite Negative (NEG) Urine Bilirubin Negative (NEG) Urine Urobilinogen Dipstick 1.0mg/dL (0.2 mg/dL) Urine Leukocyte Esterase Negative (NEG) Urine RBC 0/HPF (0-2) Urine WBC Occ/HPF (0-4) Urine Squamous Epithelial Cells Occ/LPF Urine Amorphous Sediment Present/HPF Urine Bacteria 0/HPF (0-FEW) Objective Assessment Leukocytosis Abd wall abscess Fever Tinea Plan Plan of Care Cult pus Increase Zosyn to 4.5 Add Fluconazole Await surgery F/u labs and cults D/w family Thank you # [id number] ABHINAV GLASER MD Nov 28, 2016 08:48
[2016-11-28 08:57] LABS: CALCIUM 7.8 mg/dL (8.5-10.1); CREATININE 0.8 mg/dL (0.7-1.3); GFR 106.5; POTASSIUM 3.9 mmol/L (3.5-5.1)
[2016-11-28] MEDS: FLUCONAZOLE 400MG/200ML PREMIX 200 ML IV SCH (09:00)
[2016-11-28] MEDS ORDERED: SODIUM HYPOCHLORITE 0.25% 473 ML BOTTLE. TP ONE (09:30)
[2016-11-28] MEDS ORDERED: FENTANYL PF 100 MCG/2 ML VIAL. IV ONE (09:30)
[2016-11-28] MEDS ORDERED: BUPIVAC MPF-EPI 0.5%-1:200000 30 ML VIAL. ONE (09:32)
--- NOTE | 2016-11-28 10:16 | PDOC ---
Provider Note Provider Note #[id number]--rjpnlmd dictated HUMA MEDINA MD Nov 28, 2016 10:16
[2016-11-28] MEDS ORDERED: LIDOCAINE 2% 100 MG/5 ML DISP.SYRIN. ONE (10:18)
[2016-11-28] MEDS ORDERED: PROPOFOL 20 ML IV ONE (10:18)
[2016-11-28] MEDS ORDERED: DEXAMETHASONE SOD PHOS 20 MG/5 ML VIAL. ONE (10:18)
[2016-11-28] MEDS ORDERED: DESFLURANE 61 TO 120 MINUTES IH ONE (10:18)
[2016-11-28] MEDS ORDERED: ONDANSETRON PF 4 MG/2 ML VIAL. ONE (10:18)
[2016-11-28] MEDS ORDERED: FENTANYL PF 250 MCG/5 ML VIAL. ONE (10:18)
[2016-11-28] MEDS ORDERED: ROCURONIUM 50 MG/5 ML VIAL. ONE (10:26)
[2016-11-28] MEDS: PIPERACILLIN/TAZOBACTAM 4.5 GM in IV NORMAL SALINE 100ML 100 ML IV SCH ×2 (10:30→17:16)
[2016-11-28] MEDS ORDERED: NEOSTIGMINE METHYLSULFATE 5 MG/5 ML SYRINGE. ONE (10:46)
[2016-11-28] MEDS ORDERED: GLYCOPYRROLATE 1 MG/5 ML VIAL. ONE (10:47)
[2016-11-28] MEDS ORDERED: SEVOFLURANE 61 TO 120 MINUTES. IH ONE (10:54)
--- NOTE | 2016-11-28 11:04 | PDOC ---
BRIEF OPERATIVE NOTE Pre-Op Diagnosis LLQ abscess i and d complex llq abscess geta ebl 25 ivf 800 karla well to rr stable k prisca #[id number] HUMA MEDINA MD Nov 28, 2016 11:04
[2016-11-28] MEDS: OXYCODONE/APAP 5/325 TABLET. PO PRN ×3 (13:29→21:25)
--- NOTE | 2016-11-28 17:09 | PDOC ---
PROGRESS NOTES Chief Complaint Chief Complaint Acute abd pain sepsis w fever and Leukocytosis Abd wall abscess History of Present Illness History of Present Illness s/p I+d today, pain much better cx pending on zosyn add stool softener, pain control PRN Vitals Vitals Vital Signs Date Time Temp Pulse Resp B/P Pulse Ox O2 Delivery O2 Flow Rate FiO2 11/28/16 14:00 98.4 84 18 112/65 96 Room Air 98.4 11/28/16 10:55 10 Physical Exam General: Alert, Oriented X3, Cooperative, No acute distress Heart: Regular rate, No murmurs Lungs: Clear, Wheezing Abdomen: Normal bowel sounds, Soft, Other (tender) Extremities: No clubbing, No cyanosis Skin: No rashes Labs LABS Laboratory Tests Test 11/27/16 17:50 11/27/16 19:30 11/28/16 07:55 White Blood Count 32.7x10^3/uL (4.0-11.0) 29.4x10^3/uL (4.0-11.0) Red Blood Count 4.63x10^6/uL (4.30-5.70) 3.94x10^6/uL (4.30-5.70) Hemoglobin 14.1g/dL (13.0-17.5) 12.0g/dL (13.0-17.5) Hematocrit 42.9% (39.0-53.0) 36.4% (39.0-53.0) Mean Corpuscular Volume 93fL (79-100) 92fL (79-100) Mean Corpuscular Hemoglobin 30pg (25-35) 30pg (25-35) Mean Corpuscular Hemoglobin Concent 33g/dL (31-37) 33g/dL (31-37) Red Cell Distribution Width 14.1% (11.5-14.5) 14.1% (11.5-14.5) Platelet Count 341x10^3/uL (140-400) 324x10^3/uL (140-400) Neutrophils (%) (Auto) 90% (31-73) 86% (31-73) Lymphocytes (%) (Auto) 4% (24-48) 7% (24-48) Monocytes (%) (Auto) 6% (0-9) 6% (0-9) Eosinophils (%) (Auto) 0% (0-3) 0% (0-3) Basophils (%) (Auto) 0% (0-3) 0% (0-3) Neutrophils # (Auto) 29.4x10^3uL (1.8-7.7) 25.4x10^3uL (1.8-7.7) Lymphocytes # (Auto) 1.3x10^3/uL (1.0-4.8) 2.0x10^3/uL (1.0-4.8) Monocytes # (Auto) 1.8x10^3/uL (0.0-1.1) 1.9x10^3/uL (0.0-1.1) Eosinophils # (Auto) 0.0x10^3/uL (0.0-0.7) 0.0x10^3/uL (0.0-0.7) Basophils # (Auto) 0.1x10^3/uL (0.0-0.2) 0.1x10^3/uL (0.0-0.2) Segmented Neutrophils % 86% (35-66) Band Neutrophils % 3% (0-9) Lymphocytes % 6% (24-48) Monocytes % 5% (0-10) Toxic Granulation Slight Platelet Estimate Adequate (ADEQUATE) Sodium Level 134mmol/L (136-145) 137mmol/L (136-145) Potassium Level 4.0mmol/L (3.5-5.1) 3.9mmol/L (3.5-5.1) Chloride Level 96mmol/L (98-107) 103mmol/L (98-107) Carbon Dioxide Level 28mmol/L (21-32) 24mmol/L (21-32) Anion Gap 10 (6-14) 10 (6-14) Blood Urea Nitrogen 13mg/dL (8-26) 10mg/dL (8-26) Creatinine 0.9mg/dL (0.7-1.3) 0.8mg/dL (0.7-1.3) Estimated GFR (Cockcroft-Gault) 93.0 106.5 BUN/Creatinine Ratio 14 (6-20) Glucose Level 102mg/dL (70-99) 96mg/dL (70-99) Lactic Acid Level 1.3mmol/L (0.4-2.0) Calcium Level 9.1mg/dL (8.5-10.1) 7.8mg/dL (8.5-10.1) Total Bilirubin 0.6mg/dL (0.2-1.0) Aspartate Amino Transf (AST/SGOT) 15U/L (15-37) Alanine Aminotransferase (ALT/SGPT) 25U/L (16-63) Alkaline Phosphatase 82U/L (46-116) Total Protein 7.7g/dL (6.4-8.2) Albumin 3.2g/dL (3.4-5.0) Albumin/Globulin Ratio 0.7 (1.0-1.7) Lipase 77U/L (73-393) Urine Color Yellow Urine Clarity Clear Urine pH 6.5 Urine Specific Seth 1.020 Urine Protein Negativemg/dL (NEG-TRACE) Urine Glucose (UA) Negativemg/dL (NEG) Urine Ketones (Stick) 15mg/dL (NEG) Urine Blood Negative (NEG) Urine Nitrite Negative (NEG) Urine Bilirubin Negative (NEG) Urine Urobilinogen Dipstick 1.0mg/dL (0.2 mg/dL) Urine Leukocyte Esterase Negative (NEG) Urine RBC 0/HPF (0-2) Urine WBC Occ/HPF (0-4) Urine Squamous Epithelial Cells Occ/LPF Urine Amorphous Sediment Present/HPF Urine Bacteria 0/HPF (0-FEW) Assessment and Plan Assessmemt and Plan cont zosyn Pain meds, supportive care Problems Medical Problems: (1) Abdominal wall abscess Status: Acute (2) Sepsis Status: Acute (3) Sepsis Status: Acute Problems: Comment Review of Relevant I have reviewed the following items oksana (where applicable) has been applied. Labs Laboratory Tests Test 11/27/16 17:50 11/27/16 19:30 11/28/16 07:55 White Blood Count 32.7x10^3/uL (4.0-11.0) 29.4x10^3/uL (4.0-11.0) Red Blood Count 4.63x10^6/uL (4.30-5.70) 3.94x10^6/uL (4.30-5.70) Hemoglobin 14.1g/dL (13.0-17.5) 12.0g/dL (13.0-17.5) Hematocrit 42.9% (39.0-53.0) 36.4% (39.0-53.0) Mean Corpuscular Volume 93fL (79-100) 92fL (79-100) Mean Corpuscular Hemoglobin 30pg (25-35) 30pg (25-35) Mean Corpuscular Hemoglobin Concent 33g/dL (31-37) 33g/dL (31-37) Red Cell Distribution Width 14.1% (11.5-14.5) 14.1% (11.5-14.5) Platelet Count 341x10^3/uL (140-400) 324x10^3/uL (140-400) Neutrophils (%) (Auto) 90% (31-73) 86% (31-73) Lymphocytes (%) (Auto) 4% (24-48) 7% (24-48) Monocytes (%) (Auto) 6% (0-9) 6% (0-9) Eosinophils (%) (Auto) 0% (0-3) 0% (0-3) Basophils (%) (Auto) 0% (0-3) 0% (0-3) Neutrophils # (Auto) 29.4x10^3uL (1.8-7.7) 25.4x10^3uL (1.8-7.7) Lymphocytes # (Auto) 1.3x10^3/uL (1.0-4.8) 2.0x10^3/uL (1.0-4.8) Monocytes # (Auto) 1.8x10^3/uL (0.0-1.1) 1.9x10^3/uL (0.0-1.1) Eosinophils # (Auto) 0.0x10^3/uL (0.0-0.7) 0.0x10^3/uL (0.0-0.7) Basophils # (Auto) 0.1x10^3/uL (0.0-0.2) 0.1x10^3/uL (0.0-0.2) Segmented Neutrophils % 86% (35-66) Band Neutrophils % 3% (0-9) Lymphocytes % 6% (24-48) Monocytes % 5% (0-10) Toxic Granulation Slight Platelet Estimate Adequate (ADEQUATE) Sodium Level 134mmol/L (136-145) 137mmol/L (136-145) Potassium Level 4.0mmol/L (3.5-5.1) 3.9mmol/L (3.5-5.1) Chloride Level 96mmol/L (98-107) 103mmol/L (98-107) Carbon Dioxide Level 28mmol/L (21-32) 24mmol/L (21-32) Anion Gap 10 (6-14) 10 (6-14) Blood Urea Nitrogen 13mg/dL (8-26) 10mg/dL (8-26) Creatinine 0.9mg/dL (0.7-1.3) 0.8mg/dL (0.7-1.3) Estimated GFR (Cockcroft-Gault) 93.0 106.5 BUN/Creatinine Ratio 14 (6-20) Glucose Level 102mg/dL (70-99) 96mg/dL (70-99) Lactic Acid Level 1.3mmol/L (0.4-2.0) Calcium Level 9.1mg/dL (8.5-10.1) 7.8mg/dL (8.5-10.1) Total Bilirubin 0.6mg/dL (0.2-1.0) Aspartate Amino Transf (AST/SGOT) 15U/L (15-37) Alanine Aminotransferase (ALT/SGPT) 25U/L (16-63) Alkaline Phosphatase 82U/L (46-116) Total Protein 7.7g/dL (6.4-8.2) Albumin 3.2g/dL (3.4-5.0) Albumin/Globulin Ratio 0.7 (1.0-1.7) Lipase 77U/L (73-393) Urine Color Yellow Urine Clarity Clear Urine pH 6.5 Urine Specific Seth 1.020 Urine Protein Negativemg/dL (NEG-TRACE) Urine Glucose (UA) Negativemg/dL (NEG) Urine Ketones (Stick) 15mg/dL (NEG) Urine Blood Negative (NEG) Urine Nitrite Negative (NEG) Urine Bilirubin Negative (NEG) Urine Urobilinogen Dipstick 1.0mg/dL (0.2 mg/dL) Urine Leukocyte Esterase Negative (NEG) Urine RBC 0/HPF (0-2) Urine WBC Occ/HPF (0-4) Urine Squamous Epithelial Cells Occ/LPF Urine Amorphous Sediment Present/HPF Urine Bacteria 0/HPF (0-FEW) Laboratory Tests Test 11/27/16 17:50 11/27/16 19:30 11/28/16 07:55 White Blood Count 32.7x10^3/uL (4.0-11.0) 29.4x10^3/uL (4.0-11.0) Red Blood Count 4.63x10^6/uL (4.30-5.70) 3.94x10^6/uL (4.30-5.70) Hemoglobin 14.1g/dL (13.0-17.5) 12.0g/dL (13.0-17.5) Hematocrit 42.9% (39.0-53.0) 36.4% (39.0-53.0) Mean Corpuscular Volume 93fL (79-100) 92fL (79-100) Mean Corpuscular Hemoglobin 30pg (25-35) 30pg (25-35) Mean Corpuscular Hemoglobin Concent 33g/dL (31-37) 33g/dL (31-37) Red Cell Distribution Width 14.1% (11.5-14.5) 14.1% (11.5-14.5) Platelet Count 341x10^3/uL (140-400) 324x10^3/uL (140-400) Neutrophils (%) (Auto) 90% (31-73) 86% (31-73) Lymphocytes (%) (Auto) 4% (24-48) 7% (24-48) Monocytes (%) (Auto) 6% (0-9) 6% (0-9) Eosinophils (%) (Auto) 0% (0-3) 0% (0-3) Basophils (%) (Auto) 0% (0-3) 0% (0-3) Neutrophils # (Auto) 29.4x10^3uL (1.8-7.7) 25.4x10^3uL (1.8-7.7) Lymphocytes # (Auto) 1.3x10^3/uL (1.0-4.8) 2.0x10^3/uL (1.0-4.8) Monocytes # (Auto) 1.8x10^3/uL (0.0-1.1) 1.9x10^3/uL (0.0-1.1) Eosinophils # (Auto) 0.0x10^3/uL (0.0-0.7) 0.0x10^3/uL (0.0-0.7) Basophils # (Auto) 0.1x10^3/uL (0.0-0.2) 0.1x10^3/uL (0.0-0.2) Segmented Neutrophils % 86% (35-66) Band Neutrophils % 3% (0-9) Lymphocytes % 6% (24-48) Monocytes % 5% (0-10) Toxic Granulation Slight Platelet Estimate Adequate (ADEQUATE) Sodium Level 134mmol/L (136-145) 137mmol/L (136-145) Potassium Level 4.0mmol/L (3.5-5.1) 3.9mmol/L (3.5-5.1) Chloride Level 96mmol/L (98-107) 103mmol/L (98-107) Carbon Dioxide Level 28mmol/L (21-32) 24mmol/L (21-32) Anion Gap 10 (6-14) 10 (6-14) Blood Urea Nitrogen 13mg/dL (8-26) 10mg/dL (8-26) Creatinine 0.9mg/dL (0.7-1.3) 0.8mg/dL (0.7-1.3) Estimated GFR (Cockcroft-Gault) 93.0 106.5 BUN/Creatinine Ratio 14 (6-20) Glucose Level 102mg/dL (70-99) 96mg/dL (70-99) Lactic Acid Level 1.3mmol/L (0.4-2.0) Calcium Level 9.1mg/dL (8.5-10.1) 7.8mg/dL (8.5-10.1) Total Bilirubin 0.6mg/dL (0.2-1.0) Aspartate Amino Transf (AST/SGOT) 15U/L (15-37) Alanine Aminotransferase (ALT/SGPT) 25U/L (16-63) Alkaline Phosphatase 82U/L (46-116) Total Protein 7.7g/dL (6.4-8.2) Albumin 3.2g/dL (3.4-5.0) Albumin/Globulin Ratio 0.7 (1.0-1.7) Lipase 77U/L (73-393) Urine Color Yellow Urine Clarity Clear Urine pH 6.5 Urine Specific Seth 1.020 Urine Protein Negativemg/dL (NEG-TRACE) Urine Glucose (UA) Negativemg/dL (NEG) Urine Ketones (Stick) 15mg/dL (NEG) Urine Blood Negative (NEG) Urine Nitrite Negative (NEG) Urine Bilirubin Negative (NEG) Urine Urobilinogen Dipstick 1.0mg/dL (0.2 mg/dL) Urine Leukocyte Esterase Negative (NEG) Urine RBC 0/HPF (0-2) Urine WBC Occ/HPF (0-4) Urine Squamous Epithelial Cells Occ/LPF Urine Amorphous Sediment Present/HPF Urine Bacteria 0/HPF (0-FEW) Microbiology 11/28/16 Gram Stain - Final, Complete Medications Current Medications Fentanyl Citrate 50 mcg 50 mcg PRN Q15MIN PRN IV PAIN GREATER THAN 3/10 Last administered on 11/27/16 21:04; Start 11/27/16 at 18:30; Stop 11/28/16 at 06:00; Status DC Sodium Chloride (Iv Sodium Chloride 0.9% 1000ml Bag) 1,000 ml @ 1,000 mls/hr Q1H IV Last administered on 11/27/16 18:41; Start 11/27/16 at 18:23; Stop at 19:22; Status DC Iohexol (Omnipaque 300 Mg/ml) 75 ml 1X ONCE IV Last administered on 11/27/16 19:12; Start 11/27/16 at 18:45; Stop 11/27/16 at 18:46; Status DC Info 1 each 1 each PRN DAILY PRN MC SEE COMMENTS; Start 11/27/16 at 18:45; Stop 11/29/16 at 18:44 Sodium Chloride (Iv Sodium Chloride 0.9% 1000ml Bag) 1,000 ml @ 1,000 mls/hr 1X ONCE IV Last administered on 11/27/16 20:05; Start 11/27/16 at 20:00; Stop 11/27/16 at 20:59; Status DC Piperacillin Sod/ Tazobactam Sod 1 each 1 each PRN DAILY PRN MC SEE COMMENTS; Start 11/27/16 at 20:00; Stop 11/28/16 at 08:39; Status DC Piperacillin Sod/ Tazobactam Sod/ Sodium Chloride (Zosyn/Iv Sodium Chloride 0.9 % 100ml) 100 ml @ 200 mls/hr 1X ONCE IV Last administered on 11/27/16 20:15; Start 11/27/16 at 20:30; Stop 11/27/16 at 20:59; Status DC Ondansetron HCl (Zofran) 4 mg PRN Q8HRS PRN IV NAUSEA/VOMITING Last administered on 11/28/16 04:56; Start 11/27/16 at 20:15; Stop 11/28/16 at 20:14 Fentanyl Citrate 50 mcg 50 mcg PRN Q2HR PRN IV PAIN Last administered on 03:54; Start 11/27/16 at 20:15; Stop 11/28/16 at 06:00; Status DC Sodium Chloride (Iv Sodium Chloride 0.9% 1000ml Bag) 1,000 ml @ 150 mls/hr Q6H40M IV Last administered on 11/28/16 05:30; Start 11/27/16 at 20:04; Stop 11/28/16 at 20:03 Acetaminophen 650 mg 650 mg PRN Q4HRS PRN PO FEVER Last administered on 21:07; Start 11/27/16 at 20:15; Stop 11/28/16 at 20:14 Piperacillin Sod/ Tazobactam Sod/ Sodium Chloride (Zosyn/Iv Sodium Chloride 0.9 % 50ml) 50 ml @ 100 mls/hr Q6HRS IV Last administered on 11/28/16 05:31; Start 11/28/16 at 06:00; Stop 11/28/16 at 08:39; Status DC Fentanyl Citrate (Fentanyl 2ml Vial) 75 mcg PRN Q1HR PRN IV SEVERE PAIN Last administered on 11/28/16 13:28; Start 11/28/16 at 05:30 Ondansetron HCl (Zofran) 4 mg PRN Q6HRS PRN IV Nausea; Start 11/28/16 at 07:15; Stop 11/28/16 at 18:00 Fentanyl Citrate (Fentanyl 2ml Vial) 25 mcg PRN Q5MIN PRN IV MILD PAIN Last administered on 11/28/16 11:28; Start 11/28/16 at 07:15; Stop 11/28/16 at 18:00 Fentanyl Citrate (Fentanyl 2ml Vial) 50 mcg PRN Q5MIN PRN IV MODERATE PAIN; Start 11/28/16 at 07:15; Stop 11/28/16 at 18:00 Morphine Sulfate 1 mg 1 mg PRN Q10MIN PRN IV SEVERE PAIN; Start 11/28/16 at 07: 15; Stop 11/28/16 at 18:00 Lactated Ringer's (Iv Lactated Ringers) 1,000 ml @ 30 mls/hr Q24H IV Last administered on 11/28/16 09:27; Start 11/28/16 at 07:08; Stop 11/28/16 at 19:07 Lidocaine HCl 2 ml 1X PRN PRN ID IV START; Start 11/28/16 at 07:15; Stop at 18:00 Hydromorphone HCl (Dilaudid) 0.5 mg PRN Q10MIN PRN IV SEV PAIN,Second choice; Start 11/28/16 at 07:15; Stop 11/28/16 at 18:00 Prochlorperazine Edisylate 5 mg 5 mg PACU PRN PRN IV NAUSEA; Start 11/28/16 at 07:15; Stop 11/28/16 at 18:00 Fluconazole/ Sodium Chloride 200 ml @ 100 mls/hr Q24H IV Last administered on 11/28/16 09:00; Start 11/28/16 at 09:00 Piperacillin Sod/ Tazobactam Sod/ Sodium Chloride (Zosyn/Iv Sodium Chloride 0.9 % 100ml) 100 ml @ 200 mls/hr Q6HRS IV Last administered on 11/28/16 10:30; Start 11/28/16 at 10:00 Sodium Hypochlorite (Dakin'S 1/2 Strength) 1 sandoval 1X ONCE TP Last administered on 11/28/16 10:41; Start 11/28/16 at 09:30; Stop 11/28/16 at 09:31; Status DC Bupivacaine HCl/ Epinephrine Bitart (Sensorcain-Mpf Epi 0.5%-1:[id number]) 30 ml STK -MED ONCE .ROUTE ; Start 11/28/16 at 09:32; Stop 11/28/16 at 09:33; Status DC Fentanyl Citrate (Fentanyl 2ml Vial) 50 mcg 1X ONCE IV Last administered on t 09:45; Start 11/28/16 at 09:30; Stop 11/28/16 at 09:58; Status DC Fentanyl Citrate (Fentanyl 5ml Vial) 250 mcg STK-MED ONCE .ROUTE ; Start at 10:18; Stop 11/28/16 at 10:19; Status DC Dexamethasone Sodium Phosphate (Decadron) 20 mg STK-MED ONCE .ROUTE ; Start 11/28 at 10:18; Stop 11/28/16 at 10:19; Status DC Ondansetron HCl (Zofran) 4 mg STK-MED ONCE .ROUTE ; Start 11/28/16 at 10:18; Stop 11/28/16 at 10:19; Status DC Desflurane 60 ml 60 ml STK-MED ONCE IH ; Start 11/28/16 at 10:18; Stop 11/28/16 at 10:19; Status DC Propofol (Diprivan) 20 ml @ As Directed STK-MED ONCE IV ; Start 11/28/16 at 10:18 ; Stop 11/28/16 at 10:19; Status DC Lidocaine HCl 100 mg STK-MED ONCE .ROUTE ; Start 11/28/16 at 10:18; Stop 11/28/16 at 10:19; Status DC Rocuronium [place] (Zemuron) 50 mg STK-MED ONCE .ROUTE ; Start 11/28/16 at 10:26 ; Stop 11/28/16 at 10:27; Status DC Neostigmine Methylsulfate 5 mg STK-MED ONCE .ROUTE ; Start 11/28/16 at 10:46; Stop 11/28/16 at 10:47; Status DC Glycopyrrolate (Robinul) 1 mg STK-MED ONCE .ROUTE ; Start 11/28/16 at 10:47; Stop 11/28/16 at 10:48; Status DC Sevoflurane (Ultane) 60 ml STK-MED ONCE IH ; Start 11/28/16 at 10:54; Stop at 10:55; Status DC Oxycodone/ Acetaminophen (Percocet 5/325) 2 tab PRN Q4HRS PRN PO PAIN Last administered on 11/28/16t 13:29; Start 11/28/16 at 11:15 Active Scripts Active Percocet 5-325 Mg Tablet (Oxycodone/Acetaminophen) 1 Each Tablet 1-2 Tab PO Q4- 6HRS Reported No Known Medications Prior To Admisstion (Info) Each 1 Each Vitals/I & O Vital Sign - Last 24 Hours 11/27/16 11/27/16 11/27/16 11/27/16 18:00 18:18 18:30 18:40 Temp 99.5 99.5 Pulse 100 104 104 Resp 10 20 20 20 B/P 150/84 192/90 142/80 Pulse Ox 96 97 96 O2 Delivery Room Air Room Air Room Air 11/27/16 11/27/16 11/27/16 11/27/16 19:30 19:36 20:08 20:30 Temp 103.1 103.1 Pulse 104 106 Resp 20 20 20 B/P 131/74 129/73 Pulse Ox 95 94 O2 Delivery Room Air Room Air 11/27/16 11/27/16 11/27/16 11/27/16 21:04 21:30 22:02 22:07 Temp 101.2 101.2 Pulse 104 102 Resp 20 20 20 20 B/P 140/70 118/60 Pulse Ox 94 100 O2 Delivery Room Air Room Air 11/27/16 11/27/16 11/27/16 11/28/16 22:55 23:00 23:50 01:59 Temp 98.4 98.4 Pulse 95 Resp 19 20 20 B/P 128/64 Pulse Ox 95 95 95 O2 Delivery Room Air Room Air Room Air Room Air 11/28/16 11/28/16 11/28/16 11/28/16 03:00 03:54 04:25 05:35 Temp 99.6 99.6 Pulse 95 Resp 18 20 20 B/P 126/74 Pulse Ox 99 99 99 O2 Delivery Room Air Room Air Room Air Room Air 11/28/16 11/28/16 11/28/16 11/28/16 06:16 07:00 09:24 09:45 Temp 99.5 99.8 99.5 99.8 Pulse 88 90 Resp 20 24 15 15 B/P 123/70 127/64 Pulse Ox 99 94 95 95 O2 Delivery Room Air Room Air Room Air Room Air 11/28/16 11/28/16 11/28/16 11/28/16 10:55 10:55 11:10 11:25 Temp 100.3 100.3 Pulse 71 80 Resp 16 16 B/P 108/52 115/58 Pulse Ox 100 97 O2 Delivery Simple Mask Mask Room Air Room Air O2 Flow Rate 10 10 11/28/16 11/28/16 11/28/16 11/28/16 11:25 11:28 11:40 13:00 Temp 99.1 98.1 99.1 98.1 Pulse 74 83 74 Resp 16 16 16 18 B/P 114/58 120/57 121/70 Pulse Ox 95 96 95 95 O2 Delivery Room Air Room Air Room Air Room Air 11/28/16 11/28/16 11/28/16 11/28/16 13:15 13:30 13:45 14:00 Temp 98.4 98.4 Pulse 84 84 83 84 Resp 18 16 18 18 B/P 128/74 124/76 118/65 112/65 Pulse Ox 96 95 93 96 O2 Delivery Room Air Room Air Room Air Room Air Intake and Output 11/27/16 11/27/16 11/28/16 15:00 23:00 07:00 Intake Total 2000 ml 1500 ml Balance 2000 ml 1500 ml CM WEST MD Nov 28, 2016 17:09
[2016-11-28] MEDS ORDERED: POLYETHYLENE GLYCOL 3350 17 GM PACKET. PO ONE (17:15)
[2016-11-28] MEDS ORDERED: DOCUSATE SODIUM 100 MG CAPSULE PO PRN (17:15)
[2016-11-28] MEDS ORDERED: POLYETHYLENE GLYCOL 3350 17 GM PACKET. PO PRN (17:15)
--- NOTE | 2016-11-28 17:36 | OP ---
DATE OF SURGERY: 11/28/2016 PREOPERATIVE DIAGNOSIS: Left lower quadrant intramuscular abscess. POSTOPERATIVE DIAGNOSIS: Left lower quadrant intramuscular abscess. PROCEDURE: Incision and drainage of complex intramuscular left lower quadrant abscess. SURGEON: Dr. Huma Medina. ANESTHESIA: General. ESTIMATED BLOOD LOSS: 25 mL. INTRAVENOUS FLUIDS: 800 mL. INDICATIONS: The patient is a 41-year-old male, who underwent a laparoscopic appendectomy approximately 1-1/2 weeks ago, who presents with a complex abscess in the left lower quadrant, originating in the musculature and extending into the subcutaneous tissue with extensive surrounding cellulitis and induration. PROCEDURE IN DETAIL: After informed consent was obtained, the patient was taken to the Operating Room and placed in supine position. After adequate induction of general anesthesia, he was prepped and draped in the usual sterile fashion. His incision was opened with a scalpel and then extended laterally and medially with immediate return of a large volume of malodorous purulent material. Cultures were obtained. The wound was Pulsavac'd. It was explored. All loculations were manually and bluntly as well as with cautery broken up. The muscular layer was visible, but there was no communication with the peritoneal cavity. At this point, the wound was Pulsavac'd. It was hemostatic. It was then packed with Kerlix slightly moistened with dakins. He tolerated the procedure well. There were no apparent complications. He was then transferred in stable condition to the Recovery Room. HUMA MEDINA MD DR: JAZMINE/lorene JOB#: [id number] / [id number] ZIGGY
[2016-11-28] MEDS: ENOXAPARIN 40 MG/0.4 ML DISP.SYRIN. SQ SCH (18:00)
[2016-11-29] MEDS: PIPERACILLIN/TAZOBACTAM 4.5 GM in IV NORMAL SALINE 100ML 100 ML IV SCH ×4 (00:10→17:59)
[2016-11-29] MEDS: OXYCODONE/APAP 5/325 TABLET. PO PRN ×6 (01:52→22:17)
[2016-11-29 03:00] VITALS: BP 112/74
[2016-11-29 05:35] LABS: BASO # 0.2 x10^3/uL (0.0-0.2); BASO % 1 % (0-3); EOS % 0 % (0-3); HEMATOCRIT 34.8 % (39.0-53.0); HEMOGLOBIN 11.4 g/dL (13.0-17.5); LYMPH % 4 % (24-48); MEAN CORPUSCULAR HEMOGLOBIN 31 pg (25-35); MEAN CORPUSCULAR HGB CONC 33 g/dL (31-37); MEAN CORPUSCULAR VOLUME 94 fL (79-100); MONO % 3 % (0-9); NEUT % 93 % (31-73); PLATELET COUNT 319 x10^3/uL (140-400); RED BLOOD COUNT 3.72 x10^6/uL (4.30-5.70); RED CELL DISTRIBUTION WIDTH 14.2 % (11.5-14.5); WHITE BLOOD COUNT 27.2 x10^3/uL (4.0-11.0)
[2016-11-29 06:16] LABS: CALCIUM 8.2 mg/dL (8.5-10.1); CREATININE 0.7 mg/dL (0.7-1.3); GFR 124.3; POTASSIUM 4.4 mmol/L (3.5-5.1)
[2016-11-29 07:00] VITALS: BP 115/67
--- NOTE | 2016-11-29 07:14 | EKG ---
[facility] [address] [place] [address] Test Date: 2016-11-27 Test Time: 18:01:30 Pat Name: NATASHA AVINA Department: Room: 430 Gender: M Corporate Auditor: : 1975 Requested By: LAURA BRANNON Order Number: [id number] Reading MD: Susie Hilliard Measurements Intervals Streeter Rate: 103 P: 46 VA: 140 QRS: 65 QRSD: 88 T: 34 QT: 302 QTc: 397 Interpretive Statements SINUS TACHYCARDIA NO SPECIFIC ECG ABNORMALITIES RI6.01 No previous ECG available for comparison Electronically Signed On 12-03-2016 14:28:01 [employer] by Susie Hilliard
--- NOTE | 2016-11-29 08:43 | PDOC ---
Infectious Disease Note Subjective Subjective Feels really well with min pain. Eating well ROS ROS GEN: Denies fevers, chills, sweats HEENT: Denies blurred vision, sore throat CV: Denies chest pain RESP: Denies shortness of air, cough GI: Denies n/v/d NEURO: Denies confusion, dizziness MSK: Denies weakness, joint pain/swelling Vital Sign Vital Signs Vital Signs Date Time Temp Pulse Resp B/P Pulse Ox O2 Delivery O2 Flow Rate FiO2 11/29/16 05:49 18 Room Air 11/29/16 03:00 98.2 70 112/74 98 98.2 11/28/16 10:55 10 Physical Exam PHYSICAL EXAM GENERAL: NAD, Alert HEENT: PERRL, OC/OP -clear NECK: Supple, no JVD, no LN LUNGS: Clear HEART: S1S2, no gallop, no murmur ABD: Soft, NT, no organomegaly, no rebound. Wound is packed but erythema resolved No warmth. Still some edema EXT: No edema, no cyanosis LIBRARY MANAGER: Alert, oriented x 3, no focal neurologic deficit SKIN: No rash IV: ok Labs Lab Laboratory Tests Test 11/29/16 05:00 White Blood Count 27.2x10^3/uL (4.0-11.0) Red Blood Count 3.72x10^6/uL (4.30-5.70) Hemoglobin 11.4g/dL (13.0-17.5) Hematocrit 34.8% (39.0-53.0) Mean Corpuscular Volume 94fL (79-100) Mean Corpuscular Hemoglobin 31pg (25-35) Mean Corpuscular Hemoglobin Concent 33g/dL (31-37) Red Cell Distribution Width 14.2% (11.5-14.5) Platelet Count 319x10^3/uL (140-400) Neutrophils (%) (Auto) 93% (31-73) Lymphocytes (%) (Auto) 4% (24-48) Monocytes (%) (Auto) 3% (0-9) Eosinophils (%) (Auto) 0% (0-3) Basophils (%) (Auto) 1% (0-3) Neutrophils # (Auto) 25.2x10^3uL (1.8-7.7) Lymphocytes # (Auto) 1.0x10^3/uL (1.0-4.8) Monocytes # (Auto) 0.7x10^3/uL (0.0-1.1) Eosinophils # (Auto) 0.0x10^3/uL (0.0-0.7) Basophils # (Auto) 0.2x10^3/uL (0.0-0.2) Sodium Level 138mmol/L (136-145) Potassium Level 4.4mmol/L (3.5-5.1) Chloride Level 104mmol/L (98-107) Carbon Dioxide Level 28mmol/L (21-32) Anion Gap 6 (6-14) Blood Urea Nitrogen 18mg/dL (8-26) Creatinine 0.7mg/dL (0.7-1.3) Estimated GFR (Cockcroft-Gault) 124.3 Glucose Level 156mg/dL (70-99) Calcium Level 8.2mg/dL (8.5-10.1) Objective Assessment Leukocytosis -improving Abd wall abscess - s/p I and D 2/7 Fever - better Tinea Plan Plan of Care Cont Zosyn to 4.5/Fluconazole Add Zyvox with GPC F/u labs and cults D/w family ABHINAV GLASER MD Nov 29, 2016 08:42
[2016-11-29] MEDS: LINEZOLID 600 MG TABLET PO SCH ×2 (09:19→21:07)
[2016-11-29] MEDS: FLUCONAZOLE 400MG/200ML PREMIX 200 ML IV SCH (09:20)
--- NOTE | 2016-11-29 09:32 | CONS ---
DATE OF CONSULTATION: 11/28/2016 The patient's room is 430. REQUESTING PHYSICIAN: Dr. Rivera. REASON FOR CONSULTATION: Leukocytosis, abdominal wall abscess. HISTORY OF PRESENT ILLNESS: The patient is a very pleasant, 41-year-old gentleman, without significant past medical history, although he did undergo an appendectomy on the 19 of November. He was discharged home on the , Sunday, and been doing fairly well, although he states he ran out of pain medication on the . On Sunday, he noticed some swelling and redness in his left lower quadrant and then developed fevers, chills, and nausea. He presented to [facility] Emergency Room on ____ He had a temperature as high as 103.1. Underwent a CT scan of the abdomen and pelvis which showed a presumed abscess in the left ventral abdominal musculature and he was placed on Zosyn in the hospital. He was scheduled to go to the Operating Room this morning. PAST MEDICAL HISTORY: Positive for the above-mentioned appendectomy, also has pins in his right wrist. Denies any other surgical problems or any past medical history. REVIEW OF SYSTEMS: Otherwise negative. PAST SURGICAL HISTORY: Mentioned above. ALLERGIES: No known drug allergies. SOCIAL HISTORY: He is a smoker. He is . His is currently with him. He has stopped tobacco. He works as a manager intensive care. FAMILY HISTORY: Positive for diabetes and hypertension in his mom. Father had a stroke. CURRENT MEDICATIONS: Include Zosyn, fentanyl, Zofran. Other meds are available and reviewed in the chart. PHYSICAL EXAMINATION: VITAL SIGNS: T-max has been 103.1, currently 99.5, pulse 88, respirations 24, blood pressure 123/70, satting 94% on room air. CONSTITUTIONAL: He is pleasant. He is cooperative. In no acute distress. HEENT: Pupils are equal and reactive. He has normal conjunctivae. Oral cavity and pharynx are clear. NECK: Supple. No JVD. LUNGS: Clear to auscultation bilaterally. HEART: S1, S2. ABDOMEN: Has positive bowel sounds. He has some inflammation, erythema, warmth and tenderness in his left lower quadrant. There is purulence draining from the wound. EXTREMITIES: Without clubbing, cyanosis, or gross edema. SKIN: Warm to touch, without signs of rash. NEUROLOGIC: Nonfocal. Moves all extremities. PSYCHIATRIC: Affect is appropriate. LABORATORY VALUES: White count 32.7, hemoglobin 14.1, platelets of 341, with 86 segs, 3 bands. Glucose of 102, creatinine is 0.9. Normal liver function study tests. Lipase was 77. Urinalysis is clean. RADIOLOGY: Reviewed in the history of present illness. IMPRESSION: 1. Leukocytosis. 2. Abdominal wall abscess. 3. Fever. 4. Tinea. RECOMMENDATIONS: Obtain cultures of the purulent material that is being drained from the abscess currently. We will increase the Zosyn to 4/0.5 grams IV q. 6 h. Add fluconazole for his tinea and also abdominal wound area. Await surgery. Follow up on labs and cultures. Discussed with family. Thank you for allowing me to participate in the care of this patient. If you have any questions, please do not hesitate to contact me. ABHINAV GLASER MD DR: JUMANA/lorene JOB#: [id number] / [id number]
--- NOTE | 2016-11-29 10:18 | PDOC ---
PROGRESS NOTES Chief Complaint Chief Complaint Acute abd pain sepsis w fever and Leukocytosis Abd wall abscess, s/p I+D History of Present Illness History of Present Illness s/p I+d POD #1 pain much better, just soreness, 5/10, still taking percocet Q4 cx pending, + GPC on zosyn, zyvox added for coverage, ID following stool softener, pain control OK Vitals Vitals Vital Signs Date Time Temp Pulse Resp B/P Pulse Ox O2 Delivery O2 Flow Rate FiO2 11/29/16 07:00 96.6 68 18 115/67 96 Room Air 96.6 11/28/16 10:55 10 Physical Exam General: Alert, Oriented X3, Cooperative, No acute distress Heart: Regular rate, No murmurs Lungs: Clear, Wheezing Abdomen: Normal bowel sounds, Soft, Other (tender) Extremities: No clubbing, No cyanosis Skin: No rashes Labs LABS Laboratory Tests Test 11/29/16 05:00 White Blood Count 27.2x10^3/uL (4.0-11.0) Red Blood Count 3.72x10^6/uL (4.30-5.70) Hemoglobin 11.4g/dL (13.0-17.5) Hematocrit 34.8% (39.0-53.0) Mean Corpuscular Volume 94fL (79-100) Mean Corpuscular Hemoglobin 31pg (25-35) Mean Corpuscular Hemoglobin Concent 33g/dL (31-37) Red Cell Distribution Width 14.2% (11.5-14.5) Platelet Count 319x10^3/uL (140-400) Neutrophils (%) (Auto) 93% (31-73) Lymphocytes (%) (Auto) 4% (24-48) Monocytes (%) (Auto) 3% (0-9) Eosinophils (%) (Auto) 0% (0-3) Basophils (%) (Auto) 1% (0-3) Neutrophils # (Auto) 25.2x10^3uL (1.8-7.7) Lymphocytes # (Auto) 1.0x10^3/uL (1.0-4.8) Monocytes # (Auto) 0.7x10^3/uL (0.0-1.1) Eosinophils # (Auto) 0.0x10^3/uL (0.0-0.7) Basophils # (Auto) 0.2x10^3/uL (0.0-0.2) Sodium Level 138mmol/L (136-145) Potassium Level 4.4mmol/L (3.5-5.1) Chloride Level 104mmol/L (98-107) Carbon Dioxide Level 28mmol/L (21-32) Anion Gap 6 (6-14) Blood Urea Nitrogen 18mg/dL (8-26) Creatinine 0.7mg/dL (0.7-1.3) Estimated GFR (Cockcroft-Gault) 124.3 Glucose Level 156mg/dL (70-99) Calcium Level 8.2mg/dL (8.5-10.1) Review of Systems Review of Systems no stool abd pain, 5/10 energy level better, lethargy almost gone Assessment and Plan Assessmemt and Plan Problems Medical Problems: (1) Abdominal wall abscess Status: Acute (2) Sepsis Status: Acute (3) Sepsis Status: Acute Problems: Comment Review of Relevant I have reviewed the following items oksana (where applicable) has been applied. Labs Laboratory Tests Test 11/27/16 17:50 11/27/16 19:30 11/28/16 07:55 11/29/16 05:00 White Blood Count 32.7x10^3/uL (4.0-11.0) 29.4x10^3/uL (4.0-11.0) 27.2x10^3/uL (4.0-11.0) Red Blood Count 4.63x10^6/uL (4.30-5.70) 3.94x10^6/uL (4.30-5.70) 3.72x10^6/uL (4.30-5.70) Hemoglobin 14.1g/dL (13.0-17.5) 12.0g/dL (13.0-17.5) 11.4g/dL (13.0-17.5) Hematocrit 42.9% (39.0-53.0) 36.4% (39.0-53.0) 34.8% (39.0-53.0) Mean Corpuscular Volume 93fL (79-100) 92fL (79-100) 94fL (79-100) Mean Corpuscular Hemoglobin 30pg (25-35) 30pg (25-35) 31pg (25-35) Mean Corpuscular Hemoglobin Concent 33g/dL (31-37) 33g/dL (31-37) 33g/dL (31-37) Red Cell Distribution Width 14.1% (11.5-14.5) 14.1% (11.5-14.5) 14.2% (11.5-14.5) Platelet Count 341x10^3/uL (140-400) 324x10^3/uL (140-400) 319x10^3/uL (140-400) Neutrophils (%) (Auto) 90% (31-73) 86% (31-73) 93% (31-73) Lymphocytes (%) (Auto) 4% (24-48) 7% (24-48) 4% (24-48) Monocytes (%) (Auto) 6% (0-9) 6% (0-9) 3% (0-9) Eosinophils (%) (Auto) 0% (0-3) 0% (0-3) 0% (0-3) Basophils (%) (Auto) 0% (0-3) 0% (0-3) 1% (0-3) Neutrophils # (Auto) 29.4x10^3uL (1.8-7.7) 25.4x10^3uL (1.8-7.7) 25.2x10^3uL (1.8-7.7) Lymphocytes # (Auto) 1.3x10^3/uL (1.0-4.8) 2.0x10^3/uL (1.0-4.8) 1.0x10^3/uL (1.0-4.8) Monocytes # (Auto) 1.8x10^3/uL (0.0-1.1) 1.9x10^3/uL (0.0-1.1) 0.7x10^3/uL (0.0-1.1) Eosinophils # (Auto) 0.0x10^3/uL (0.0-0.7) 0.0x10^3/uL (0.0-0.7) 0.0x10^3/uL (0.0-0.7) Basophils # (Auto) 0.1x10^3/uL (0.0-0.2) 0.1x10^3/uL (0.0-0.2) 0.2x10^3/uL (0.0-0.2) Segmented Neutrophils % 86% (35-66) Band Neutrophils % 3% (0-9) Lymphocytes % 6% (24-48) Monocytes % 5% (0-10) Toxic Granulation Slight Platelet Estimate Adequate (ADEQUATE) Sodium Level 134mmol/L (136-145) 137mmol/L (136-145) 138mmol/L (136-145) Potassium Level 4.0mmol/L (3.5-5.1) 3.9mmol/L (3.5-5.1) 4.4mmol/L (3.5-5.1) Chloride Level 96mmol/L (98-107) 103mmol/L (98-107) 104mmol/L (98-107) Carbon Dioxide Level 28mmol/L (21-32) 24mmol/L (21-32) 28mmol/L (21-32) Anion Gap 10 (6-14) 10 (6-14) 6 (6-14) Blood Urea Nitrogen 13mg/dL (8-26) 10mg/dL (8-26) 18mg/dL (8-26) Creatinine 0.9mg/dL (0.7-1.3) 0.8mg/dL (0.7-1.3) 0.7mg/dL (0.7-1.3) Estimated GFR (Cockcroft-Gault) 93.0 106.5 124.3 BUN/Creatinine Ratio 14 (6-20) Glucose Level 102mg/dL (70-99) 96mg/dL (70-99) 156mg/dL (70-99) Lactic Acid Level 1.3mmol/L (0.4-2.0) Calcium Level 9.1mg/dL (8.5-10.1) 7.8mg/dL (8.5-10.1) 8.2mg/dL (8.5-10.1) Total Bilirubin 0.6mg/dL (0.2-1.0) Aspartate Amino Transf (AST/SGOT) 15U/L (15-37) Alanine Aminotransferase (ALT/SGPT) 25U/L (16-63) Alkaline Phosphatase 82U/L (46-116) Total Protein 7.7g/dL (6.4-8.2) Albumin 3.2g/dL (3.4-5.0) Albumin/Globulin Ratio 0.7 (1.0-1.7) Lipase 77U/L (73-393) Urine Color Yellow Urine Clarity Clear Urine pH 6.5 Urine Specific [place] 1.020 Urine Protein Negativemg/dL (NEG-TRACE) Urine Glucose (UA) Negativemg/dL (NEG) Urine Ketones (Stick) 15mg/dL (NEG) Urine Blood Negative (NEG) Urine Nitrite Negative (NEG) Urine Bilirubin Negative (NEG) Urine Urobilinogen Dipstick 1.0mg/dL (0.2 mg/dL) Urine Leukocyte Esterase Negative (NEG) Urine RBC 0/HPF (0-2) Urine WBC Occ/HPF (0-4) Urine Squamous Epithelial Cells Occ/LPF Urine Amorphous Sediment Present/HPF Urine Bacteria 0/HPF (0-FEW) Laboratory Tests Test 11/29/16 05:00 White Blood Count 27.2x10^3/uL (4.0-11.0) Red Blood Count 3.72x10^6/uL (4.30-5.70) Hemoglobin 11.4g/dL (13.0-17.5) Hematocrit 34.8% (39.0-53.0) Mean Corpuscular Volume 94fL (79-100) Mean Corpuscular Hemoglobin 31pg (25-35) Mean Corpuscular Hemoglobin Concent 33g/dL (31-37) Red Cell Distribution Width 14.2% (11.5-14.5) Platelet Count 319x10^3/uL (140-400) Neutrophils (%) (Auto) 93% (31-73) Lymphocytes (%) (Auto) 4% (24-48) Monocytes (%) (Auto) 3% (0-9) Eosinophils (%) (Auto) 0% (0-3) Basophils (%) (Auto) 1% (0-3) Neutrophils # (Auto) 25.2x10^3uL (1.8-7.7) Lymphocytes # (Auto) 1.0x10^3/uL (1.0-4.8) Monocytes # (Auto) 0.7x10^3/uL (0.0-1.1) Eosinophils # (Auto) 0.0x10^3/uL (0.0-0.7) Basophils # (Auto) 0.2x10^3/uL (0.0-0.2) Sodium Level 138mmol/L (136-145) Potassium Level 4.4mmol/L (3.5-5.1) Chloride Level 104mmol/L (98-107) Carbon Dioxide Level 28mmol/L (21-32) Anion Gap 6 (6-14) Blood Urea Nitrogen 18mg/dL (8-26) Creatinine 0.7mg/dL (0.7-1.3) Estimated GFR (Cockcroft-Gault) 124.3 Glucose Level 156mg/dL (70-99) Calcium Level 8.2mg/dL (8.5-10.1) Microbiology 11/28/16 Blood Culture - Preliminary, Resulted NO GROWTH AFTER 1 DAY 11/28/16 Gram Stain - Final, Complete Medications Current Medications Fentanyl Citrate 50 mcg 50 mcg PRN Q15MIN PRN IV PAIN GREATER THAN 3/10 Last administered on 11/27/16 21:04; Start 11/27/16 at 18:30; Stop 11/28/16 at 06:00; Status DC Sodium Chloride (Iv Sodium Chloride 0.9% 1000ml Bag) 1,000 ml @ 1,000 mls/hr Q1H IV Last administered on 11/27/16 18:41; Start 11/27/16 at 18:23; Stop at 19:22; Status DC Iohexol (Omnipaque 300 Mg/ml) 75 ml 1X ONCE IV Last administered on 11/27/16 19:12; Start 11/27/16 at 18:45; Stop 11/27/16 at 18:46; Status DC Info 1 each 1 each PRN DAILY PRN MC SEE COMMENTS; Start 11/27/16 at 18:45; Stop 11/29/16 at 18:44 Sodium Chloride (Iv Sodium Chloride 0.9% 1000ml Bag) 1,000 ml @ 1,000 mls/hr 1X ONCE IV Last administered on 11/27/16 20:05; Start 11/27/16 at 20:00; Stop 11/27/16 at 20:59; Status DC Piperacillin Sod/ Tazobactam Sod 1 each 1 each PRN DAILY PRN MC SEE COMMENTS; Start 11/27/16 at 20:00; Stop 11/28/16 at 08:39; Status DC Piperacillin Sod/ Tazobactam Sod/ Sodium Chloride (Zosyn/Iv Sodium Chloride 0.9 % 100ml) 100 ml @ 200 mls/hr 1X ONCE IV Last administered on 11/27/16 20:15; Start 11/27/16 at 20:30; Stop 11/27/16 at 20:59; Status DC Ondansetron HCl (Zofran) 4 mg PRN Q8HRS PRN IV NAUSEA/VOMITING Last administered on 11/28/16 04:56; Start 11/27/16 at 20:15; Stop 11/28/16 at 20:14; Status DC Fentanyl Citrate 50 mcg 50 mcg PRN Q2HR PRN IV PAIN Last administered on 03:54; Start 11/27/16 at 20:15; Stop 11/28/16 at 06:00; Status DC Sodium Chloride (Iv Sodium Chloride 0.9% 1000ml Bag) 1,000 ml @ 150 mls/hr Q6H40M IV Last administered on 11/28/16 17:30; Start 11/27/16 at 20:04; Stop 11/28/16 at 20:03; Status DC Acetaminophen 650 mg 650 mg PRN Q4HRS PRN PO FEVER Last administered on 21:07; Start 11/27/16 at 20:15; Stop 11/28/16 at 20:14; Status DC Piperacillin Sod/ Tazobactam Sod/ Sodium Chloride (Zosyn/Iv Sodium Chloride 0.9 % 50ml) 50 ml @ 100 mls/hr Q6HRS IV Last administered on 11/28/16 05:31; Start 11/28/16 at 06:00; Stop 11/28/16 at 08:39; Status DC Fentanyl Citrate (Fentanyl 2ml Vial) 75 mcg PRN Q1HR PRN IV SEVERE PAIN Last administered on 11/28/16 17:25; Start 11/28/16 at 05:30 Ondansetron HCl (Zofran) 4 mg PRN Q6HRS PRN IV Nausea; Start 11/28/16 at 07:15; Stop 11/28/16 at 17:09; Status DC Fentanyl Citrate (Fentanyl 2ml Vial) 25 mcg PRN Q5MIN PRN IV MILD PAIN Last administered on 11/28/16 11:28; Start 11/28/16 at 07:15; Stop 11/28/16 at 17:09; Status DC Fentanyl Citrate (Fentanyl 2ml Vial) 50 mcg PRN Q5MIN PRN IV MODERATE PAIN; Start 11/28/16 at 07:15; Stop 11/28/16 at 17:09; Status DC Morphine Sulfate 1 mg 1 mg PRN Q10MIN PRN IV SEVERE PAIN; Start 11/28/16 at 07: 15; Stop 11/28/16 at 17:09; Status DC Lactated Ringer's (Iv Lactated Ringers) 1,000 ml @ 30 mls/hr Q24H IV Last administered on 11/28/16 09:27; Start 11/28/16 at 07:08; Stop 11/28/16 at 17:09; Status DC Lidocaine HCl 2 ml 1X PRN PRN ID IV START; Start 11/28/16 at 07:15; Stop at 17:09; Status DC Hydromorphone HCl (Dilaudid) 0.5 mg PRN Q10MIN PRN IV SEV PAIN,Second choice; Start 11/28/16 at 07:15; Stop 11/28/16 at 17:09; Status DC Prochlorperazine Edisylate 5 mg 5 mg PACU PRN PRN IV NAUSEA; Start 11/28/16 at 07:15; Stop 11/28/16 at 17:09; Status DC Fluconazole/ Sodium Chloride 200 ml @ 100 mls/hr Q24H IV Last administered on 11/29/16 09:20; Start 11/28/16 at 09:00 Piperacillin Sod/ Tazobactam Sod/ Sodium Chloride (Zosyn/Iv Sodium Chloride 0.9 % 100ml) 100 ml @ 200 mls/hr Q6HRS IV Last administered on 11/29/16 05:48; Start 11/28/16 at 10:00 Sodium Hypochlorite (Dakin'S 1/2 Strength) 1 sandoval 1X ONCE TP Last administered on 11/28/16t 10:41; Start 11/28/16 at 09:30; Stop 11/28/16 at 09:31; Status DC Bupivacaine HCl/ Epinephrine Bitart (Sensorcain-Mpf Epi 0.5%-1:[id number]) 30 ml STK -MED ONCE .ROUTE ; Start 11/28/16 at 09:32; Stop 11/28/16 at 09:33; Status DC Fentanyl Citrate (Fentanyl 2ml Vial) 50 mcg 1X ONCE IV Last administered on t 09:45; Start 11/28/16 at 09:30; Stop 11/28/16 at 09:58; Status DC Fentanyl Citrate (Fentanyl 5ml Vial) 250 mcg STK-MED ONCE .ROUTE ; Start at 10:18; Stop 11/28/16 at 10:19; Status DC Dexamethasone Sodium Phosphate (Decadron) 20 mg STK-MED ONCE .ROUTE ; Start 11/28 at 10:18; Stop 11/28/16 at 10:19; Status DC Ondansetron HCl (Zofran) 4 mg STK-MED ONCE .ROUTE ; Start 11/28/16 at 10:18; Stop 11/28/16 at 10:19; Status DC Desflurane 60 ml 60 ml STK-MED ONCE IH ; Start 11/28/16 at 10:18; Stop 11/28/16 at 10:19; Status DC Propofol (Diprivan) 20 ml @ As Directed STK-MED ONCE IV ; Start 11/28/16 at 10:18 ; Stop 11/28/16 at 10:19; Status DC Lidocaine HCl 100 mg STK-MED ONCE .ROUTE ; Start 11/28/16 at 10:18; Stop 11/28/16 at 10:19; Status DC Rocuronium [place] (Zemuron) 50 mg STK-MED ONCE .ROUTE ; Start 11/28/16 at 10:26 ; Stop 11/28/16 at 10:27; Status DC Neostigmine Methylsulfate 5 mg STK-MED ONCE .ROUTE ; Start 11/28/16 at 10:46; Stop 11/28/16 at 10:47; Status DC Glycopyrrolate (Robinul) 1 mg STK-MED ONCE .ROUTE ; Start 11/28/16 at 10:47; Stop 11/28/16 at 10:48; Status DC Sevoflurane (Ultane) 60 ml STK-MED ONCE IH ; Start 11/28/16 at 10:54; Stop at 10:55; Status DC Oxycodone/ Acetaminophen (Percocet 5/325) 2 tab PRN Q4HRS PRN PO PAIN Last administered on 11/29/16 09:21; Start 11/28/16 at 11:15 Polyethylene Glycol (miraLAX PACKET) 17 gm PRN DAILY PRN PO CONSTIPATION; Start 11/28/16 at 17:15 Polyethylene Glycol (miraLAX PACKET) 17 gm 1X ONCE PO ; Start 11/28/16 at 17:15 ; Stop 11/28/16 at 17:16; Status DC Docusate Sodium (Colace) 100 mg PRN DAILY PRN PO CONSTIPATION; Start 11/28/16 at 17:15 Oxycodone HCl (Roxicodone) 5 mg PRN Q6HRS PRN PO PAIN; Start 11/28/16 at 17:15 Enoxaparin Sodium (Lovenox Per Pharmacy Prophylaxis Dosing) 1 each PRN DAILY PRN MC SEE COMMENTS; Start 11/29/16 at 08:00 Enoxaparin Sodium (Lovenox 40mg Syringe) 40 mg Q24H SQ ; Start 11/28/16 at 18:00 Linezolid (Zyvox) 600 mg BID PO Last administered on 11/29/16 09:19; Start 11/29 at 09:00 Active Scripts Active Percocet 5-325 Mg Tablet (Oxycodone/Acetaminophen) 1 Each Tablet 1-2 Tab PO Q4- 6HRS Reported No Known Medications Prior To Admisstion (Info) Each 1 Each Vitals/I & O Vital Sign - Last 24 Hours 11/28/16 11/28/16 11/28/16 11/28/16 10:55 10:55 11:10 11:25 Temp 100.3 100.3 Pulse 71 80 Resp 16 16 B/P 108/52 115/58 Pulse Ox 100 97 O2 Delivery Simple Mask Mask Room Air Room Air O2 Flow Rate 10 10 11/28/16 11/28/16 11/28/16 11/28/16 11:25 11:28 11:40 13:00 Temp 99.1 98.1 99.1 98.1 Pulse 74 83 74 Resp 16 16 16 18 B/P 114/58 120/57 121/70 Pulse Ox 95 96 95 95 O2 Delivery Room Air Room Air Room Air Room Air 11/28/16 11/28/16 11/28/16 11/28/16 13:15 13:30 13:45 14:00 Temp 98.4 98.4 Pulse 84 84 83 84 Resp 18 16 18 18 B/P 128/74 124/76 118/65 112/65 Pulse Ox 96 95 93 96 O2 Delivery Room Air Room Air Room Air Room Air 11/28/16 11/28/16 11/28/16 11/28/16 14:30 15:00 16:00 17:00 Temp 98.7 98.7 Pulse 78 84 84 78 Resp 20 18 18 20 B/P 107/68 111/64 107/68 101/57 Pulse Ox 94 95 95 99 O2 Delivery Room Air Room Air Room Air Room Air 11/28/16 11/28/16 11/28/16 11/28/16 19:00 19:40 21:25 23:00 Temp 97.5 97.5 97.5 97.5 Pulse 73 63 Resp 18 20 B/P 103/62 112/71 Pulse Ox 98 98 O2 Delivery Room Air Room Air Room Air Room Air 11/29/16 11/29/16 11/29/16 11/29/16 01:52 02:52 03:00 05:49 Temp 98.2 98.2 Pulse 70 Resp 20 18 B/P 112/74 Pulse Ox 98 O2 Delivery Room Air Room Air Room Air Room Air 11/29/16 07:00 Temp 96.6 96.6 Pulse 68 Resp 18 B/P 115/67 Pulse Ox 96 O2 Delivery Room Air Intake and Output 11/28/16 11/28/16 11/29/16 15:00 23:00 07:00 Intake Total 1500 ml 1025 ml 3010 ml Output Total 25 ml Balance 1475 ml 1025 ml 3010 ml CM WEST MD Nov 29, 2016 10:18
[2016-11-29] MEDS: POLYETHYLENE GLYCOL 3350 17 GM PACKET. PO SCH (10:30)
[2016-11-29 11:00] VITALS: BP 123/70
[2016-11-29] MEDS: OXYCODONE IR 5 MG TABLET. PO PRN ×2 (11:49→21:06)
[2016-11-29] MEDS: FENTANYL PF 100 MCG/2 ML VIAL. IV PRN ×2 (11:50→13:44)
--- NOTE | 2016-11-29 12:39 | PDOC ---
Provider Note Provider Note feeling much better afeb since surg yest abd soft nd less erythema. induration persists but is improved. i removed the packing and the wound is clean a/p cont iv abx and wound care. HUMA MEDINA MD Nov 29, 2016 12:39
[2016-11-29 15:00] VITALS: BP 111/65
[2016-11-29] MEDS: ENOXAPARIN 40 MG/0.4 ML DISP.SYRIN. SQ SCH (17:58)
[2016-11-29 19:10] VITALS: BP 115/80
--- NOTE | 2016-11-29 21:14 | CONS ---
DATE OF CONSULTATION: 11/28/2016 CHIEF COMPLAINT: Fever. HISTORY OF PRESENT ILLNESS: The patient is a 41-year-old male who approximately a week and half ago underwent laparoscopic appendectomy. He did well until 11/25/2016 when he noted fevers. He says the fevers got as high on Sunday, the 4th up to 102. He says the fever was intermittent and a spiking in nature. He said he tried Tylenol, which made him feel hotter and did not alleviate his fever and then on Sunday late afternoon to Sunday, the fever became associated with increased pain in the left lower quadrant incision along with redness and swelling. He called my office yesterday afternoon to report the symptoms and he was asked to come to the Emergency Room for evaluation. He did so and CT scan shows an abscess in the left lower quadrant musculature and subcutaneous fat. PAST MEDICAL HISTORY: Denies. PAST SURGICAL HISTORY: Recent laparoscopic appendectomy. SOCIAL HISTORY: He is . He smokes. He is employed. FAMILY HISTORY: Noncontributory to this illness. MEDICATIONS: At home, usual medications are none. ALLERGIES: No known drug allergies. REVIEW OF SYSTEMS: CONSTITUTIONAL: He has had fevers, but no chills. See above in HPI for details. EYES: No abrupt loss of vision or double vision. EARS, NOSE, MOUTH, AND THROAT: No loss of hearing or ringing in his ears. CARDIOVASCULAR: No chest pain or heart palpitations. RESPIRATORY: No cough, shortness breath. GASTROINTESTINAL: No nausea, vomiting or diarrhea. GENITOURINARY: No dysuria or hematuria. HEMATOLOGIC: No easy bleeding or bruising. MUSCULOSKELETAL: No new myalgias or arthralgias. DERMATOLOGIC: He has redness and swelling in the left lower quadrant incision. PSYCHIATRIC: Denies depression or anxiety. NEUROLOGIC: Denies headaches or seizures. PHYSICAL EXAMINATION: VITAL SIGNS: He has been febrile up to 103.1 while he is here at [place], this morning, his temperature is 99.8. He was tachycardic on admission, currently his heart rate is 90, respiratory rate 15, blood pressure 127/64, O2 sats 95% on room air. GENERAL: A well-developed, well-nourished male in no acute distress. EYES: His pupils are round and reactive. Sclerae are nonicteric. HENT: Head is atraumatic. Mucous membranes moist. Face symmetric. NECK: Supple, without cervical lymphadenopathy, no supraclavicular lymphadenopathy. Neck is nontender without masses. CARDIOVASCULAR: By palpation of his left radial pulse, 2+ left radial pulse. Regular rate. No pedal edema. RESPIRATORY: Respirations are nonlabored. CHEST WALL: Nontender to palpation. ABDOMEN: Soft, but he has got extensive erythema involving his left lower quadrant with swelling and extreme tenderness all surrounding this left lower quadrant incision. His other incisions are unremarkable. PSYCHIATRIC: Cooperative with appropriate mood and affect. NEUROLOGIC: No resting tremor. He is alert and oriented x 3. He can move all 4 extremities without difficulty. DIAGNOSTIC DATA: Reviewed. CT scan report was reviewed. ASSESSMENT: 1. Left lower quadrant intramuscular and subcutaneous abscess, status post laparoscopic appendectomy. 2. Sepsis secondary to #1, present on admission. 3. Hyponatremia, present on admission. 4. Tobacco abuse. PLAN: The patient will be taken to the operating room for an incision and drainage of this abdominal abscess. We did discuss that the wound will need to heal by secondary intention and that he will need to stay in the hospital for at least another day or two for IV antibiotics and wound care to ensure that this infection is resolving and he does not require any further intervention for this. The patient is agreeable. HUMA MEDINA MD DR: JAZMINE/lorene JOB#: [id number] / [id number] LAURA Stanley GLENN MD
[2016-11-29 23:15] VITALS: BP 114/79
[2016-11-30] MEDS: PIPERACILLIN/TAZOBACTAM 4.5 GM in IV NORMAL SALINE 100ML 100 ML IV SCH ×2 (00:33→05:44)
[2016-11-30] MEDS: OXYCODONE/APAP 5/325 TABLET. PO PRN ×3 (02:10→10:28)
[2016-11-30 03:10] VITALS: BP 110/66
[2016-11-30] MEDS: OXYCODONE IR 5 MG TABLET. PO PRN ×2 (05:45→14:36)
[2016-11-30 07:00] VITALS: BP 116/61
[2016-11-30] MEDS: POLYETHYLENE GLYCOL 3350 17 GM PACKET. PO SCH (09:00)
[2016-11-30] MEDS: FLUCONAZOLE 400MG/200ML PREMIX 200 ML IV SCH (09:31)
[2016-11-30] MEDS: LINEZOLID 600 MG TABLET PO SCH (09:31)
[2016-11-30] MEDS: FENTANYL PF 100 MCG/2 ML VIAL. IV PRN (09:34)
--- NOTE | 2016-11-30 09:48 | PDOC ---
TRUDY HERNANDEZ PIPE MACHINE OPERATOR 11/30/16 0948: SURGICAL PROGRESS NOTE Subjective just back from shower, waiting for medication prior to dressing change plans to FU in wound clinic for ongoing wound care Vital Signs Vital Signs Date Time Temp Pulse Resp B/P Pulse Ox O2 Delivery O2 Flow Rate FiO2 11/30/16 09:34 Room Air 11/30/16 07:00 97.6 67 18 116/61 99 97.6 I&O Intake and Output 11/30/16 07:00 Intake Total 1600 ml Balance 1600 ml Intake Oral 1600 ml # Voids 5 # Bowel Movements 3 General: Alert, Oriented X3, Cooperative, No acute distress Abdomen: Normal bowel sounds, Soft, Other (LLQ wound edges clean, wound packed) Labs Laboratory Tests Test 11/29/16 05:00 White Blood Count 27.2x10^3/uL (4.0-11.0) Red Blood Count 3.72x10^6/uL (4.30-5.70) Hemoglobin 11.4g/dL (13.0-17.5) Hematocrit 34.8% (39.0-53.0) Mean Corpuscular Volume 94fL (79-100) Mean Corpuscular Hemoglobin 31pg (25-35) Mean Corpuscular Hemoglobin Concent 33g/dL (31-37) Red Cell Distribution Width 14.2% (11.5-14.5) Platelet Count 319x10^3/uL (140-400) Neutrophils (%) (Auto) 93% (31-73) Lymphocytes (%) (Auto) 4% (24-48) Monocytes (%) (Auto) 3% (0-9) Eosinophils (%) (Auto) 0% (0-3) Basophils (%) (Auto) 1% (0-3) Neutrophils # (Auto) 25.2x10^3uL (1.8-7.7) Lymphocytes # (Auto) 1.0x10^3/uL (1.0-4.8) Monocytes # (Auto) 0.7x10^3/uL (0.0-1.1) Eosinophils # (Auto) 0.0x10^3/uL (0.0-0.7) Basophils # (Auto) 0.2x10^3/uL (0.0-0.2) Sodium Level 138mmol/L (136-145) Potassium Level 4.4mmol/L (3.5-5.1) Chloride Level 104mmol/L (98-107) Carbon Dioxide Level 28mmol/L (21-32) Anion Gap 6 (6-14) Blood Urea Nitrogen 18mg/dL (8-26) Creatinine 0.7mg/dL (0.7-1.3) Estimated GFR (Cockcroft-Gault) 124.3 Glucose Level 156mg/dL (70-99) Calcium Level 8.2mg/dL (8.5-10.1) Problem List Problems Medical Problems: (1) Abdominal wall abscess Status: Acute (2) Sepsis Status: Acute (3) Sepsis Status: Acute Assessment/Plan s/p I&D LLQ abscess continue wound care Problems: HUMA MEDINA MD 11/30/16 1428: SURGICAL PROGRESS NOTE Assessment/Plan addendum i saw and examined him. his is going to do his daily dressing changes. how to do these were d/w her (i d/w her). instructed her to only put one long piece of guaze, not multiple pieces, in the wound. he will f/u with me on sunday--he already has an appt scheduled. Problems: TRUDY HERNANDEZ APRN Nov 30, 2016 09:48 HUMA MEDINA MD Nov 30, 2016 14:28
--- NOTE | 2016-11-30 10:41 | PDOC ---
Infectious Disease Note Subjective Subjective Feels really well with min pain. Eating well ROS ROS GEN: Denies fevers, chills, sweats HEENT: Denies blurred vision, sore throat CV: Denies chest pain RESP: Denies shortness of air, cough GI: Denies n/v/d NEURO: Denies confusion, dizziness MSK: Denies weakness, joint pain/swelling Vital Sign Vital Signs Vital Signs Date Time Temp Pulse Resp B/P Pulse Ox O2 Delivery O2 Flow Rate FiO2 11/30/16 10:28 Room Air 11/30/16 07:00 97.6 67 18 116/61 99 97.6 Physical Exam PHYSICAL EXAM GENERAL: NAD, Alert HEENT: PERRL, OC/OP -clear NECK: Supple, no JVD, no LN LUNGS: Clear HEART: S1S2, no gallop, no murmur ABD: Soft, NT, no organomegaly, no rebound. Wound is very clean. no surrounding erythema or infection EXT: No edema, no cyanosis ELECTRONIC MAINTENANCE SUPERVISOR: Alert, oriented x 3, no focal neurologic deficit SKIN: No rash IV: ok Objective Assessment Leukocytosis -improving Abd wall abscess - s/p I and D 2/7 Fever - better [place] Plan Plan of Care Discont Zosyn/zyvox/Fluconazole and begin Augmentin/Minocycline - for 5 days Micro phone - is not working so cults available but wound looks very clean so min need for abx D/w family ABHINAV GLASER MD Nov 30, 2016 10:41
[2016-11-30] MEDS ORDERED: MINOCYCLINE 100 MG CAPSULE PO SCH (10:45)
[2016-11-30] MEDS ORDERED: AMOXICILLIN/K CLAV 875/125MG TABLET. PO SCH (10:45)
[2016-11-30 11:00] VITALS: BP 126/87
[2016-11-30] MEDS ORDERED: MINO100C42 PO (12:23)
[2016-11-30] MEDS ORDERED: AMOX1TAB11 PO (12:23)
[2016-11-30] MEDS ORDERED: OXYC-323 PO (12:23)
[2016-11-30] MEDS ORDERED: DOCU-27 PO (12:25)
--- NOTE | 2016-11-30 12:27 | PDOC3 ---
Discharge Summary Visit Information Date of Admission: Nov 27, 2016 Date of Discharge: Nov 30, 2016 Admitting Diagnosis: abd pain Final Diagnosis Acute abd pain sepsis w fever and Leukocytosis Abd wall abscess, s/p I+D Vitals Problems Medical Problems: (1) Abdominal wall abscess Status: Acute (2) Sepsis Status: Acute (3) Sepsis Status: Acute Brief Hospital Course Allergies Allergies Coded Allergies Type Severity Reaction Last Updated Verified No Known Drug Allergies 11/19/16 No Vital Signs Vital Signs Date Time Temp Pulse Resp B/P Pulse Ox O2 Delivery O2 Flow Rate FiO2 11/30/16 11:34 Room Air 11/30/16 07:00 97.6 67 18 116/61 99 97.6 Lab Results Laboratory Tests Test 11/29/16 05:00 White Blood Count 27.2x10^3/uL (4.0-11.0) Red Blood Count 3.72x10^6/uL (4.30-5.70) Hemoglobin 11.4g/dL (13.0-17.5) Hematocrit 34.8% (39.0-53.0) Mean Corpuscular Volume 94fL (79-100) Mean Corpuscular Hemoglobin 31pg (25-35) Mean Corpuscular Hemoglobin Concent 33g/dL (31-37) Red Cell Distribution Width 14.2% (11.5-14.5) Platelet Count 319x10^3/uL (140-400) Neutrophils (%) (Auto) 93% (31-73) Lymphocytes (%) (Auto) 4% (24-48) Monocytes (%) (Auto) 3% (0-9) Eosinophils (%) (Auto) 0% (0-3) Basophils (%) (Auto) 1% (0-3) Neutrophils # (Auto) 25.2x10^3uL (1.8-7.7) Lymphocytes # (Auto) 1.0x10^3/uL (1.0-4.8) Monocytes # (Auto) 0.7x10^3/uL (0.0-1.1) Eosinophils # (Auto) 0.0x10^3/uL (0.0-0.7) Basophils # (Auto) 0.2x10^3/uL (0.0-0.2) Sodium Level 138mmol/L (136-145) Potassium Level 4.4mmol/L (3.5-5.1) Chloride Level 104mmol/L (98-107) Carbon Dioxide Level 28mmol/L (21-32) Anion Gap 6 (6-14) Blood Urea Nitrogen 18mg/dL (8-26) Creatinine 0.7mg/dL (0.7-1.3) Estimated GFR (Cockcroft-Gault) 124.3 Glucose Level 156mg/dL (70-99) Calcium Level 8.2mg/dL (8.5-10.1) Brief Hospital Course Mr. Lamas is a 41 old presented with sepsis sign, abd pain, noted abd wall abcess on exam, taken to OR by Dr. Baxter, I+D w. clear bases ID following, wound care, looked very clear at DC 5 days abx, f/u outpatient wound care Discharge Information Condition at Discharge: Improved Follow Up: Weeks Disposition/Orders: D/C to Home Scheduled Amoxicillin/Potassium Clav (Amox Tr-K Clv 875-125 Mg Tab) 1 TAB PO BID Minocycline Hcl (Minocin) 100 MG PO BID Scheduled PRN Oxycodone/Apap 5-325 (Percocet 5-325 Mg Tablet) 1 TAB PO Q4HRS PRN PRN PAIN Miscellaneous Medications Info (No Known Medications Prior To Admisstion) 1 EACH MC (Reported) Patient Instructions Patient Instructions eloy e> 30 min gm Pos cocci in cx, no sens CM WEST MD Nov 30, 2016 12:27
== END 2016-11-30 15:20 | disposition home or self-care (01) | DRG 856 ==
LOC: ER 17:19 → EDSEX 17:19 → 4 NORTH 19:59
PROVIDERS: ADMIT Internal Medicine; ATTEND Internal Medicine
PROC: 0K9 Muscles, Drainage (ICD-10-PCS; principal; 2016-11-28 10:00)
DX: T81.4XXA Infection following a procedure, initial encounter (principal); A41.9 Sepsis, unspecified organism; E87.1 Hypo-osmolality and hyponatremia; L02.211 Cutaneous abscess of abdominal wall; F17.200 Nicotine dependence, unspecified, uncomplicated; Z82.3 Family history of stroke; Z82.49 Family history of ischemic heart disease and other diseases of the circulatory system; Z83.3 Family history of diabetes mellitus; Z90.49 Acquired absence of other specified parts of digestive tract
CPT/HCPCS: 36415; 74177; 80048; 80053; 81001; 83605; 83690; 85007; 85027; 87040; 87071; 87075; 87205; 87324; 93005; 96361; 96374; J1100; J1450; J1650; J2405; J2543; J2704; J2710; J3010; J3490; J7030; J7120; Q9967; 99285-25